=== PATIENT | female | born 1960 | race Caucasian/White ===

== ENCOUNTER 2021-12-24 10:18 | Observation (INO) ==
--- NOTE | 2021-12-24 10:27 | Emergency Department Note ---
HPI General Chief complaint: Weakness Stated complaint: weakness/fall Time Seen by Provider: 12/24/21 10:23 Source: patient and EMS Mode of arrival: EMS Limitations: no limitations History of Present Illness HPI Narrative: 61-year-old female with past medical history of COPD, gout, hypothyroidism, and hypertension presenting after multiple falls. She was seen in the emergency department yesterday after a fall. She had x-rays and was discharged home. She reportedly had multiple falls at home tonight and cannot take care of herself at home. She lives alone in a small trailer without air conditioning. Unknown how long she was on the ground at home after the falls. Patient reports acute on chronic right knee pain and low back pain. Denies shortness of breath, abdominal pain, or headache. Not on anticoagulation. No recent fever, cough, vomiting, or diarrhea. Related Data Home Medications Medication Instructions Recorded Confirmed aspirin 81 mg tablet,delayed 81 mg PO 08/28/16 12/19/21 release Previous Rx's Medication Instructions Recorded oxybutynin chloride 10 mg See Rx Instructions .Route 08/09/20 tablet,extended release 24 hr .COMPLEX #30 tabs verapamil 180 mg tablet,extended See Rx Instructions .Route 04/25/21 release .COMPLEX #90 tabs albuterol sulfate 90 mcg/actuation 2 puff inhalation Q4-6HP PRN 05/10/21 aerosol inhaler Shortness Of Breath Or Wheezing #18 grams cholecalciferol (vitamin D3) 1,250 1,250 mcg PO QWEEK #8 caps 05/10/21 mcg (50,000 unit) capsule levothyroxine 100 mcg tablet 100 mcg PO QDAY #60 tabs 05/10/21 Depends XL #100 ea 08/08/21 loratadine 10 mg tablet See Rx Instructions .Route 08/26/21 .COMPLEX #30 tabs omeprazole 20 mg capsule,delayed See Rx Instructions .Route 08/26/21 release .COMPLEX #60 caps methotrexate sodium 2.5 mg tablet 22.5 mg PO WEEKLY #36 tabs 09/01/21 cyclobenzaprine 10 mg tablet See Rx Instructions .Route 09/07/21 .COMPLEX #60 tabs folic acid 1 mg tablet 1 mg PO QDAY #90 tabs 09/07/21 allopurinol 100 mg tablet See Rx Instructions .Route 10/13/21 .COMPLEX #30 tabs fluoxetine 40 mg capsule See Rx Instructions .Route 10/13/21 .COMPLEX #90 caps ergocalciferol (vitamin D2) 1,250 1,250 mcg PO QWEEK #8 caps 10/28/21 mcg (50,000 unit) capsule Allergies Allergy/AdvReac Type Severity Reaction Status Date / Time Sulfa (Sulfonamide Allergy Severe Hives Verified 12/24/21 10:23 Antibiotics) milk Allergy Unknown Unknown Verified 12/24/21 10:23 Review of Systems ROS ROS Narrative: Narrative: Constitutional: Denies fever Eyes: Denies vision change ENT ED: Denies throat pain Cardiovascular: Denies chest pain or palpitations Respiratory: Denies shortness of breath or cough Gastrointestinal: Denies abdominal pain, nausea, vomiting, diarrhea or melena Genitourinary: Denies dysuria or hematuria Musculoskeletal: Reports back pain Integumentary: Denies rash Neurological: Reports weakness; Denies headache, numbness or dizziness Psychiatric: Denies anxiety Endocrine: Reports fatigue PFSH Narrative Patient History Narrative: Narrative: Medical/Surgical/Family History All Active Problems (Updated 12/24/21 @ 17:01 by Lino Kang MD) Hyponatremia (Acute) Fall (Acute) Falls (Acute) Impaired mobility and ADLs (Acute) Encounter for wound care (Acute) Tegan infection of flexural skin (Acute) Acute ulcer of skin (Acute) Breast lump on left side at 12 o'clock position (Acute) Breast pain, left (Acute) Weakness of left leg (Acute) Macrocytosis without anemia (Acute) Other low back pain (Acute) Lumbosacral disc disease (Chronic) Shoulder impingement syndrome (Chronic) History of fall (Chronic) Right hip pain (Chronic) Right ankle pain (Chronic) Asthma (Chronic) Rheumatoid arthritis (Acute) 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) COPD (chronic obstructive pulmonary disease) (Chronic) Mild mental handicap (Chronic) Lumbosacral disc disease (Chronic) Encounter for long-term (current) use of high-risk medication (Acute) Encounter for long-term use of opiate analgesic (Chronic) Joint pain (Chronic) Encounter for therapeutic drug level monitoring (Chronic) Seasonal allergies (Chronic) Depression, major, recurrent (Chronic) 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) Anxiety disorder (Chronic) Depression with anxiety (Chronic) GERD (gastroesophageal reflux disease) (Chronic) Hypothyroidism (Chronic) Vitamin D deficiency (Chronic) Fibromyalgia (Chronic) Stress incontinence (Chronic) Esophagitis (Chronic) Hypertension (Chronic) Smoker (Chronic) History of cholecystectomy (Chronic ~03/2008) History of hysterectomy (Chronic ~1987) History of surgery on wrist (Chronic) Arthritis (Chronic) Mild mental handicap (Chronic) Osteoarthritis (arthritis due to wear and tear of joints) (Chronic) Obesity (BMI 30-39.9) (Chronic) Decreased GFR (Chronic) Low back pain (Chronic) Glaucoma (Chronic) Gout (Chronic) Chronic pain (Chronic) Lumbar radiculopathy (Chronic) Lumbar stenosis with neurogenic claudication (Chronic) SILAS (obstructive sleep apnea) (Acute) Medical History Abscess Anxiety disorder Arthritis Asthma Bronchitis Chronic pain Costochondral pain Cyclic citrullinated peptide (CCP) antibody positive Depression Depression with anxiety Depression, major, recurrent Edema Encounter for long-term (current) use of high-risk medication Encounter for long-term use of opiate analgesic Encounter for therapeutic drug level monitoring Esophagitis Fibromyalgia Foreign body of left hand GERD (gastroesophageal reflux disease) Glaucoma Gout Hematuria History of fall Hormone replacement therapy Hypertension Medication reviewed Avoid class 1 antihistamine, cold medicines Increase water, reduce salt/processed foods ,,22 Smoking cessation encouraged Hypothyroidism 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 Joint pain Low back pain Lumbar paraspinal muscle spasm Lumbar radiculopathy Lumbar stenosis with neurogenic claudication Lumbosacral disc disease Mild mental handicap MRSA (methicillin resistant staph aureus) culture positive left 4th toe Obesity SILAS (obstructive sleep apnea) Osteoarthritis (arthritis due to wear and tear of joints) Overdose Rheumatoid arthritis Right ankle pain Right hip pain Seasonal allergies Refill of loratidine, avoid cold medicines for blood pressure control Smoker Declines NRT 05/10/21, 09/07/21 Stress incontinence Tachycardia Vitamin D deficiency Wound check, abscess Surgical History Amputation of little toe (11/02/18) History of cholecystectomy (~03/2008) History of hysterectomy (~1987) History of surgery on wrist Hx of inguinal hernia surgery Family History Mother Cancer Heart disease Diabetes Lung disease Alcohol abuse Sister Hypertension Brother Drug abuse Social History Smoking Status: Current every day smoker Alcohol Intake Frequency: does not drink Substance Use: does not use Exam Narrative Narrative: Narrative: General Limitations: no limitations General appearance: Present alert and in no apparent distress Head Head: Present normocephalic and other (Old bruising noted on face) Eye Eye: Present normal appearance, PERRL and EOMI; Absent scleral icterus, conjunctival injection or nystagmus ENT ENT: Present mucous membranes moist Neck Neck: Present normal inspection, full ROM and trachea midline; Absent tenderness, meningismus or lymphadenopathy Chest Chest: Present symmetric chest wall rise Respiratory Respiratory: Present normal lung sounds bilaterally; Absent respiratory distress, rales/crackles, wheezes, stridor or accessory muscle use Cardiovascular Cardiovascular: Present regular rate and normal rhythm; Absent systolic murmur or diastolic murmur Adbominal Abdominal: Present soft; Absent distention, tenderness, guarding, rebound or rigidity Expanded Lower Extremity Knee: Present normal inspection, tenderness, abrasion and other (Range of motion limited secondary to pain) Neurovascular/Tendon: Present normal capillary refill; Absent pulse deficit or sensory deficit Back Back: Present L-S tenderness; Absent CVA tenderness (R) or CVA tenderness (L) Neurological Neurological: Present alert, oriented X3 and CN II-XII intact; Absent motor sensory deficit Psychiatric Psychiatric: Present normal affect and normal mood Skin Skin: Present warm (WNL) and dry Course Consultations Consultation #1: Dr. Kang, hospitalist Time: 16:40 Vital Signs Vital signs: Vital Signs Temperature 98.0 F 12/24/21 10:19 Pulse Rate 81 12/24/21 10:19 Respiratory Rate 16 12/24/21 10:19 Blood Pressure 131/69 12/24/21 10:19 Pulse Oximetry (%) 96 12/24/21 10:19 Oxygen Delivery Method 12/24/21 10:19 Temperature 98.0 F 12/24/21 15:40 Pulse Rate 90 12/24/21 17:29 Respiratory Rate 16 12/24/21 15:40 Blood Pressure 145/76 12/24/21 17:29 Pulse Oximetry (%) 100 12/24/21 17:29 Oxygen Delivery Method 12/24/21 10:19 [facility] MDM Narrative Medical decision making narrative: 61-year-old female presenting from home after multiple falls. Vital signs are stable. There is concern that she is not able to take care of herself at home. Labs are notable for mild hyponatremia to 131. UA and chest x-ray with no evidence of infection. CT head with no acute abnormality. X-ray of the right knee shows no fracture. CK and lumbar x-ray are pending. Patient is not able to take care of herself at home and I spoke with family who is refusing to take her home because she cannot take care of herself. I spoke with Dr. Kang, hospitalist, who accepts the patient for observation admission. Lab Data Lab results reviewed: Yes I reviewed the patient's lab results. Result diagrams: 12/24/21 11:23 12/24/21 11:23 Labs: Lab Results 12/24/21 12/24/21 12/24/21 Range/Units 11:23 11:23 11:23 WBC 8.3 (4.5-11.0) K/mcL RBC 3.76 (3.59-5.38) M/mcL Hgb 11.7 (11.2-15.7) g/dL Hct 36.4 (34.1-44.9) % MCV 96.8 (80.0-100.0) fL MCH 31.1 (26.0-34.0) pg MCHC 32.1 (31.0-36.0) g/dL RDW 14.4 (11.5-14.5) % Plt Count 236 (140-440) K/mcL MPV 9.7 (7.4-10.4) fL Immature Gran % (Auto) 0.8 H (0.0-0.5) % Neut % (Auto) 78.2 H (38.0-78.0) % Lymph % (Auto) 13.3 L (15.5-49.0) % Banks % (Auto) 7.1 (1.0-12.0) % Eos % (Auto) 0.2 (0.0-7.0) % Baso % (Auto) 0.4 (0.0-2.0) % Lymph # (Auto) 1.10 L (1.50-4.80) K/mcL Banks # (Auto) 0.59 (0.10-0.90) K/mcL Eos # (Auto) 0.02 (0.00-0.70) K/mcL Baso # (Auto) 0.03 (0.00-0.30) K/mcL Immature Gran # 0.07 H (0.00-0.05) K/mcl Absolute Neutrophils 6.52 (1.80-8.00) K/mcL Sodium 131 L (133-145) mmol/L Potassium 4.3 (3.3-5.1) mmol/L Chloride 98 (96-108) mmol/L Carbon Dioxide 22 (22-30) mmol/L Anion Gap 11.0 (8.0-16.0) BUN 13 (8-23) mg/dL Creatinine 0.7 (0.6-1.1) mg/dL GFR Calculation 93 Glucose 118 H (70-105) mg/dL Calcium 9.1 (8.6-10.4) mg/dL Total Bilirubin 0.6 (0.1-1.0) mg/dL AST 25 (<32) U/L ALT 30 (<40) U/L Alkaline Phosphatase 131 H (39-117) U/L Total Creatine Kinase 129 (24-170) U/L Total Protein 7.3 (5.9-8.4) gm/dL Albumin 4.1 (3.2-5.2) gm/dL Globulin 3.2 (2.2-3.7) gm/dL Albumin/Globulin Ratio 1.3 (1.0-2.3) Urine Color Urine Appearance (Clear) Urine pH (5.0-9.0) Ur Specific Naoma (1.000-1.035) Urine Protein (Negative) mg/dL Urine Glucose (UA) (Negative) mg/dL Urine Ketones (Negative) mg/dL Urine Occult Blood (Negative) leo/mcL Urine Nitrate (Negative) Urine Bilirubin (Negative) mg/dL Urine Urobilinogen mg/dL Ur Leukocyte Esterase (Negative) /uL Urine RBC (0-3) /hpf Urine WBC (0-4) /hpf Ur Squamous Epith Cells (0-4) /hpf Urine Bacteria (0) /hpf Hyaline Casts (0-2) /lph Urine Mucus (None) /hpf Ur Culture Indicated? 12/24/21 Range/Units 12:39 WBC (4.5-11.0) K/mcL RBC (3.59-5.38) M/mcL Hgb (11.2-15.7) g/dL Hct (34.1-44.9) % MCV (80.0-100.0) fL MCH (26.0-34.0) pg MCHC (31.0-36.0) g/dL RDW (11.5-14.5) % Plt Count (140-440) K/mcL MPV (7.4-10.4) fL Immature Gran % (Auto) (0.0-0.5) % Neut % (Auto) (38.0-78.0) % Lymph % (Auto) (15.5-49.0) % Banks % (Auto) (1.0-12.0) % Eos % (Auto) (0.0-7.0) % Baso % (Auto) (0.0-2.0) % Lymph # (Auto) (1.50-4.80) K/mcL Banks # (Auto) (0.10-0.90) K/mcL Eos # (Auto) (0.00-0.70) K/mcL Baso # (Auto) (0.00-0.30) K/mcL Immature Gran # (0.00-0.05) K/mcl Absolute Neutrophils (1.80-8.00) K/mcL Sodium (133-145) mmol/L Potassium (3.3-5.1) mmol/L Chloride (96-108) mmol/L Carbon Dioxide (22-30) mmol/L Anion Gap (8.0-16.0) BUN (8-23) mg/dL Creatinine (0.6-1.1) mg/dL GFR Calculation Glucose (70-105) mg/dL Calcium (8.6-10.4) mg/dL Total Bilirubin (0.1-1.0) mg/dL AST (<32) U/L ALT (<40) U/L Alkaline Phosphatase (39-117) U/L Total Creatine Kinase (24-170) U/L Total Protein (5.9-8.4) gm/dL Albumin (3.2-5.2) gm/dL Globulin (2.2-3.7) gm/dL Albumin/Globulin Ratio (1.0-2.3) Urine Color Yellow Urine Appearance Clear (Clear) Urine pH 5.5 (5.0-9.0) Ur Specific Naoma >= 1.030 (1.000-1.035) Urine Protein 30 mg/dl A (Negative) mg/dL Urine Glucose (UA) Negative (Negative) mg/dL Urine Ketones 15 mg/dl A (Negative) mg/dL Urine Occult Blood Trace-lysed A (Negative) leo/mcL Urine Nitrate Negative (Negative) Urine Bilirubin Small A (Negative) mg/dL Urine Urobilinogen Normal mg/dL Ur Leukocyte Esterase Negative (Negative) /uL Urine RBC 3 (0-3) /hpf Urine WBC 1 (0-4) /hpf Ur Squamous Epith Cells 2 (0-4) /hpf Urine Bacteria None (0) /hpf Hyaline Casts 1 (0-2) /lph Urine Mucus Mod A (None) /hpf Ur Culture Indicated? No Radiology Data Radiology results reviewed: Yes I reviewed the patient's radiology results. Radiology results narrative: Ordering Physician:Hugh Pearl M.D. Date of Service:12/24/21 Procedure(s):CT head/brain wo con History: Multiple falls, head injury, increased weakness TECHNIQUE: The brain was imaged without contrast in axial plane at 2.5 mm intervals. Sagittal and coronal reformats were created. The radiation exposure was limited using dose reduction technology. FINDINGS: There is no intracranial hemorrhage, edema or infarct. There are large confluent areas of abnormal decreased attenuation in the centrum semiovale throughout the frontal and parietal lobes. There is no significant atrophy. No abnormal extra-axial fluid collection is present. The bone windows show no skull fracture. Visualized portions of the orbits and sinuses are normal. No prior study is available for comparison. IMPRESSION: No evidence of acute head injury Nonspecific diffuse white matter disease in the frontal and parietal lobes. This may be due to early onset white matter ischemia or degeneration. An inflammatory process is less likely. Dr. Pearl was called with the report Interpreted and Authenticated by: Hadley Dumont 12/24/21 1154 [id number] Production Specialist: <Electronically signed by Hadley Dumont M.D. in OV> 12/24/21 1158 Ordering Physician:Hugh Pearl M.D. Date of Service:12/24/21 Procedure(s):XR chest 1V portable HISTORY: Weakness, fell FINDINGS: There is a large epicardial fat pad along the right heart border. The lungs are clear. The heart size and pulmonary vasculature are normal. Patient is tilted to the right. Aorta is mildly tortuous. No fracture is detected. Comparison with the prior exam from 05/04/21 shows the linear scar in the left lower lobe is less apparent today. IMPRESSION: No acute abnormality Interpreted and Authenticated by: Hadley Dumont 12/24/21 Ordering Physician:Hugh Pearl M.D. Date of Service:12/24/21 Procedure(s):XR knee RT 3V HISTORY: Fell, right knee pain FINDINGS: No fracture or dislocation are present. There is a small spur along the superior articular margin of the patella. Joint spaces are normal in width. There has been no change since 12/22/21. IMPRESSION: No fracture Interpreted and Authenticated by: Hadley Dumont 12/24/21 EKG Data EKG #1: EKG attestation: Yes I reviewed and interpreted this EKG. and Yes There are no EKG findings of acute coronary syndrome EKG results narrative: Sinus rhythm at [address] elevation or depression. Interpretation: no acute changes Discharge Plan Patient/Caregiver Discharge Instructions Pt seen by DRESS CUTTER/PA only: No Clinical Impression: Falls, Impaired mobility and ADLs Patient Disposition: Xfer As Outpt/Obs ([facility]) Condition: Fair Follow up with: Kaykay Leigh ARNP [Primary Care Provider] - Prescriptions: No Action oxybutynin chloride 10 mg tablet extended release 24hr See Rx Instructions .ROUTE .COMPLEX Qty: 30 6RF Dose Instruction: TAKE ONE TABLET BY MOUTH ONCE DAILY IN THE MORNING Rx Instructions: TAKE ONE TABLET BY MOUTH ONCE DAILY IN THE MORNING verapamil 180 mg tablet extended release See Rx Instructions .ROUTE .COMPLEX Qty: 90 1RF Dose Instruction: TAKE ONE TABLET BY MOUTH ONCE DAILY AT BEDTIME Rx Instructions: TAKE ONE TABLET BY MOUTH ONCE DAILY AT BEDTIME (DME) Depends XL See Rx Instructions .Route .MEDSUPPLY Qty: 100 3RF Rx Instructions: change when soiled omeprazole 20 mg capsule,delayed release(DR/EC) See Rx Instructions .ROUTE .COMPLEX Qty: 60 11RF Dose Instruction: TAKE ONE CAPSULE BY MOUTH TWICE DAILY FOR STOMACH Rx Instructions: TAKE ONE CAPSULE BY MOUTH TWICE DAILY FOR STOMACH loratadine 10 mg tablet See Rx Instructions .ROUTE .COMPLEX Qty: 30 2RF Dose Instruction: TAKE ONE TABLET BY MOUTH ONCE DAILY Rx Instructions: TAKE ONE TABLET BY MOUTH ONCE DAILY methotrexate sodium 2.5 mg tablet 22.5 mg PO WEEKLY Qty: 36 5RF folic acid 1 mg tablet 1 mg PO QDAY Qty: 90 0RF cyclobenzaprine 10 mg tablet See Rx Instructions .ROUTE .COMPLEX Qty: 60 1RF Dose Instruction: TAKE ONE TABLET BY MOUTH THREE TIMES DAILY NEEDED FOR ANALGESIA Rx Instructions: TAKE ONE TABLET BY MOUTH THREE TIMES DAILY NEEDED FOR ANALGESIA allopurinol 100 mg tablet See Rx Instructions .ROUTE .COMPLEX Qty: 30 3RF Dose Instruction: TAKE ONE TABLET BY MOUTH ONCE DAILY Rx Instructions: TAKE ONE TABLET BY MOUTH ONCE DAILY fluoxetine 40 mg capsule See Rx Instructions .ROUTE .COMPLEX Qty: 90 1RF Dose Instruction: TAKE ONE CAPSULE BY MOUTH ONCE DAILY Rx Instructions: TAKE ONE CAPSULE BY MOUTH ONCE DAILY ergocalciferol (vitamin D2) 1,250 mcg (50,000 unit) capsule 1,250 mcg PO QWEEK Qty: 8 0RF levothyroxine 100 mcg tablet 100 mcg PO QDAY Qty: 60 1RF Rx Instructions: Take on empty stomach with water, wait 40 minutes to eat/drink. cholecalciferol (vitamin D3) 1,250 mcg (50,000 unit) capsule 1,250 mcg PO QWEEK Qty: 8 0RF albuterol sulfate 90 mcg/actuation HFA aerosol inhaler 2 puff INHALATION Q4-6HP PRN (Reason: Shortness Of Breath Or Wheezing) Qty: 18 1RF aspirin 81 MG tablet,delayed release (DR/EC) 81 mg PO
--- NOTE | 2021-12-24 12:02 | Cat Scan Report ---
History: Multiple falls, head injury, increased weakness TECHNIQUE: The brain was imaged without contrast in axial plane at 2.5 mm intervals. Sagittal and coronal reformats were created. The radiation exposure was limited using dose reduction technology. FINDINGS: There is no intracranial hemorrhage, edema or infarct. There are large confluent areas of abnormal decreased attenuation in the centrum semiovale throughout the frontal and parietal lobes. There is no significant atrophy. No abnormal extra-axial fluid collection is present. The bone windows show no skull fracture. Visualized portions of the orbits and sinuses are normal. No prior study is available for comparison. IMPRESSION: No evidence of acute head injury Nonspecific diffuse white matter disease in the frontal and parietal lobes. This may be due to early onset white matter ischemia or degeneration. An inflammatory process is less likely. Dr. Pearl was called with the report Interpreted and Authenticated by: Hadley Dumont 12/24/21
[2021-12-24 12:08] LABS: Basophils # (Auto) 0.03 K/mcL (0.00-0.30); Basophils % (Auto) 0.4 % (0.0-2.0); Eosinophils # (Auto) 0.02 K/mcL (0.00-0.70); Eosinophils % (Auto) 0.2 % (0.0-7.0); Hematocrit 36.4 % (34.1-44.9); Hemoglobin 11.7 g/dL (11.2-15.7); Lymphocytes % (Auto) 13.3 % (15.5-49.0); Mean Cell Volume 96.8 fL (80.0-100.0); Mean Corpuscular HGB Conc 32.1 g/dL (31.0-36.0); Mean Platelet Volume 9.7 fL (7.4-10.4); Monocytes # (Auto) 0.59 K/mcL (0.10-0.90); Monocytes % (Auto) 7.1 % (1.0-12.0); Neutrophils % (Auto) 78.2 % (38.0-78.0); Platelet Count 236 K/mcL (140-440); RBC 3.76 M/mcL (3.59-5.38); Red Cell Distribution Width 14.4 % (11.5-14.5); WBC 8.3 K/mcL (4.5-11.0)
[2021-12-24 12:28] LABS: ALT/SGPT 30 U/L (<40); AST/SGOT 25 U/L (<32); Albumin 4.1 gm/dL (3.2-5.2); Albumin/Globulin Ratio 1.3 (1.0-2.3); Alkaline Phosphatase 131 U/L (39-117); Bilirubin,Total 0.6 mg/dL (0.1-1.0); Blood Urea Nitrogen 13 mg/dL (8-23); Calcium 9.1 mg/dL (8.6-10.4); Carbon Dioxide 22 mmol/L (22-30); Chloride 98 mmol/L (96-108); Globulin 3.2 gm/dL (2.2-3.7); Glomerular Filtration Rate 93; Glucose 118 mg/dL (70-105)
[2021-12-24 14:13] LABS: Appearance,Urine Clear (Clear); Bilirubin,Urine Small mg/dL (Negative); Color,Urine Yellow; Culture Indicated,Urine No; Glucose,Urine (UA) Negative (Negative); Ketones,Urine 15 mg/dL mg/dL (Negative); Leukocyte Esterase,Urine Negative /uL (Negative); Mucus,Urine MOD /hpf; Nitrate,Urine Negative (Negative); PH,Urine 5.5 (5.0-9.0); Specific Gravity,Urine >= 1.030 (1.000-1.035); Urine Blood Trace-lysed ery/mcL (Negative); Urine Hyaline Cast 1 /lph (0-2); Urine RBC 3 /hpf (0-3); Urine Squamous Epithelial Cell 2 /hpf (0-4); Urine WBC 1 /hpf (0-4); Urobilinogen,Urine Normal
--- NOTE | 2021-12-24 14:51 | XRay Report ---
HISTORY: Weakness, fell FINDINGS: There is a large epicardial fat pad along the right heart border. The lungs are clear. The heart size and pulmonary vasculature are normal. Patient is tilted to the right. Aorta is mildly tortuous. No fracture is detected. Comparison with the prior exam from 05/04/21 shows the linear scar in the left lower lobe is less apparent today. IMPRESSION: No acute abnormality Interpreted and Authenticated by: Hadley Dumont 12/24/21
--- NOTE | 2021-12-24 14:52 | XRay Report ---
HISTORY: Fell, right knee pain FINDINGS: No fracture or dislocation are present. There is a small spur along the superior articular margin of the patella. Joint spaces are normal in width. There has been no change since 12/22/21. IMPRESSION: No fracture Interpreted and Authenticated by: Hadley Dumont 12/24/21
--- NOTE | 2021-12-24 16:57 | Internal Med History&Physical ---
HPI History of Present Illness Patient information: Note initiated : 12/24/21 at 4:53 pm Service Date, if different from initiated Date: [] Patient: Whit Anand a 61 y/o F admitted on for weakness/fall. Chief Complaint: [general weakness and frequent falls] Chief complaint: general weakness and frequent falls History of present illness: Ms. Anand is a 61 year old F history of gout, asthma/COPD, depression/anxiety, hypothyroidism, GERD, overactive bladder, essential hypertensions, presenting with general body weakness with frequent falls. She was in our ED yesterday with the same chief complaint and she was being discharged home. Today she returned to our ER for the same complaints. Now the family stated that they are not comfortable of taking the patient's back home. Patient lives by herself. Patient have another episode of falls right in the ER. CT of the head did not reveal any acute intra cranial pathologies. Chest x-ray knee x-ray also have no acute changes. Lumbar x-ray pending. Labs only significant see is mild hyponatremia with serum sodium level 132. UA does not suggest the presence of urinary tract infections. Admission request was called for physical therapy and Occupational Therapy evaluation and treatment and for placement pending. Constitutional Constitutional: Present frequent falls and weakness; Absent chills, excessive sweating, fatigue or fever(s) EENT Eyes: Absent blurry vision, change in vision, loss of vision or other visual disturbances Ears: Absent decreased hearing or tinnitus Nose, mouth and throat: Absent abnormal hearing, dry mouth, headache(s), nasal congestion or sore throat Cardiovascular Cardiovascular: Absent chest pain, chest pain at rest, edema, irregular heart rhythm or palpatations Respiratory Respiratory: Absent cough, dyspnea or wheezing Gastrointestinal Gastrointestinal: Absent abdominal pain, constipation, diarrhea, nausea or vomi ting Musculoskeletal Musculoskeletal: Absent back pain, deformity, limited range of motion, muscle cramps, muscle weakness or numbness Integumentary Integumentary: Absent lesions, rash or wounds Neurological Neurological: Absent focal weakness, headache(s) or numbness Psychiatric Psychiatric: Absent anxiety, depression or hallucinations PFSH PFSH All Active Problems (Updated 12/24/21 @ 17:01 by Lino Kang MD) Hyponatremia (Acute) Fall (Acute) Falls (Acute) Impaired mobility and ADLs (Acute) Encounter for wound care (Acute) Tegan infection of flexural skin (Acute) Acute ulcer of skin (Acute) Breast lump on left side at 12 o'clock position (Acute) Breast pain, left (Acute) Weakness of left leg (Acute) Macrocytosis without anemia (Acute) Other low back pain (Acute) Lumbosacral disc disease (Chronic) Shoulder impingement syndrome (Chronic) History of fall (Chronic) Right hip pain (Chronic) Right ankle pain (Chronic) Asthma (Chronic) Rheumatoid arthritis (Acute) 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) COPD (chronic obstructive pulmonary disease) (Chronic) Mild mental handicap (Chronic) Lumbosacral disc disease (Chronic) Encounter for long-term (current) use of high-risk medication (Acute) Encounter for long-term use of opiate analgesic (Chronic) Joint pain (Chronic) Encounter for therapeutic drug level monitoring (Chronic) Seasonal allergies (Chronic) Depression, major, recurrent (Chronic) 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) Anxiety disorder (Chronic) Depression with anxiety (Chronic) GERD (gastroesophageal reflux disease) (Chronic) Hypothyroidism (Chronic) Vitamin D deficiency (Chronic) Fibromyalgia (Chronic) Stress incontinence (Chronic) Esophagitis (Chronic) Hypertension (Chronic) Smoker (Chronic) History of cholecystectomy (Chronic ~03/2008) History of hysterectomy (Chronic ~1987) History of surgery on wrist (Chronic) Arthritis (Chronic) Mild mental handicap (Chronic) Osteoarthritis (arthritis due to wear and tear of joints) (Chronic) Obesity (BMI 30-39.9) (Chronic) Decreased GFR (Chronic) Low back pain (Chronic) Glaucoma (Chronic) Gout (Chronic) Chronic pain (Chronic) Lumbar radiculopathy (Chronic) Lumbar stenosis with neurogenic claudication (Chronic) SILAS (obstructive sleep apnea) (Acute) Medical History Abscess Anxiety disorder Arthritis Asthma Bronchitis Chronic pain Costochondral pain Cyclic citrullinated peptide (CCP) antibody positive Depression Depression with anxiety Depression, major, recurrent Edema Encounter for long-term (current) use of high-risk medication Encounter for long-term use of opiate analgesic Encounter for therapeutic drug level monitoring Esophagitis Fibromyalgia Foreign body of left hand GERD (gastroesophageal reflux disease) Glaucoma Gout Hematuria History of fall Hormone replacement therapy Hypertension Medication reviewed Avoid class 1 antihistamine, cold medicines Increase water, reduce salt/processed foods 4,13,22 Smoking cessation encouraged Hypothyroidism Immunodeficiency due to assisted drug therapy Joint pain Low back pain Lumbar paraspinal muscle spasm Lumbar radiculopathy Lumbar stenosis with neurogenic claudication Lumbosacral disc disease Mild mental handicap MRSA (methicillin resistant staph aureus) culture positive left 4th toe Obesity SILAS (obstructive sleep apnea) Osteoarthritis (arthritis due to wear and tear of joints) Overdose Rheumatoid arthritis Right ankle pain Right hip pain Seasonal allergies Refill of loratidine, avoid cold medicines for blood pressure control Smoker Declines NRT 05/10/21, 09/07/21 Stress incontinence Tachycardia Vitamin D deficiency Wound check, abscess Surgical History Amputation of little toe (11/02/18) History of cholecystectomy (~03/2008) History of hysterectomy (~1987) History of surgery on wrist Hx of inguinal hernia surgery Family History Mother Cancer Heart disease Diabetes Lung disease Alcohol abuse Sister Hypertension Brother Drug abuse Social History caregiver/support person: Yes marital status: education level: elementary school occupational status: unemployed and disabled occupation: Caregiver physical activity: none smoking status start date: 05/28/84 quit status: not considering quitting counseling given: patient declined (medications) and provider counseling alcohol intake frequency: does not drink substance use type: does not use MEDS/ALLERGIES Home Medications and Allergies Home Medications Medication Instructions Recorded Confirmed Type aspirin 81 mg tablet,delayed 81 mg PO 08/28/16 12/19/21 History release oxybutynin chloride 10 mg See Rx Instructions .Route 08/09/20 12/19/21 Rx tablet,extended release 24 hr .COMPLEX #30 tabs verapamil 180 mg tablet,extended See Rx Instructions .Route 04/25/21 12/19/21 Rx release .COMPLEX #90 tabs albuterol sulfate 90 mcg/actuation 2 puff inhalation Q4-6HP PRN 05/10/21 12/19/21 Rx aerosol inhaler Shortness Of Breath Or Wheezing #18 grams cholecalciferol (vitamin D3) 1,250 1,250 mcg PO QWEEK #8 caps 05/10/21 12/19/21 Rx mcg (50,000 unit) capsule levothyroxine 100 mcg tablet 100 mcg PO QDAY #60 tabs 05/10/21 12/19/21 Rx Depends XL #100 ea 08/08/21 12/19/21 Rx loratadine 10 mg tablet See Rx Instructions .Route 08/26/21 12/19/21 Rx .COMPLEX #30 tabs omeprazole 20 mg capsule,delayed See Rx Instructions .Route 08/26/21 12/19/21 Rx release .COMPLEX #60 caps methotrexate sodium 2.5 mg tablet 22.5 mg PO WEEKLY #36 tabs 09/01/21 12/19/21 Rx cyclobenzaprine 10 mg tablet See Rx Instructions .Route 09/07/21 12/19/21 Rx .COMPLEX #60 tabs folic acid 1 mg tablet 1 mg PO QDAY #90 tabs 09/07/21 12/19/21 Rx allopurinol 100 mg tablet See Rx Instructions .Route 10/13/21 12/19/21 Rx .COMPLEX #30 tabs fluoxetine 40 mg capsule See Rx Instructions .Route 10/13/21 12/19/21 Rx .COMPLEX #90 caps ergocalciferol (vitamin D2) 1,250 1,250 mcg PO QWEEK #8 caps 10/28/21 12/19/21 Rx mcg (50,000 unit) capsule Allergies Allergy/AdvReac Type Severity Reaction Status Date / Time Sulfa (Sulfonamide Allergy Severe Hives Verified 12/24/21 10:23 Antibiotics) milk Allergy Unknown Unknown Verified 12/24/21 10:23 EXAM Constitutional Vitals: Temp Pulse Resp BP Pulse Ox O2 Del Method 36.7 C 113 H 16 124/72 96 12/24/21 15:40 12/24/21 15:54 12/24/21 15:40 12/24/21 15:40 12/24/21 15:54 12/24/21 10:19 General appearance: cooperative and no acute distress Head Head exam: Present atraumatic and normocephalic Eye Eye exam: Present EOMI and PERRL ENT ENT exam: Present mucous membranes moist, normal exam and normal external ear exam Neck Neck exam: Present normal inspection; Absent lymphadenopathy, tenderness or thyromegaly Respiratory Respiratory exam: Absent accessory muscle use, respiratory distress or wheezes Cardiovascular Cardiovascular exam: Present normal rate and rhythm; Absent JVD GI/Abdominal GI/Abdominal exam: Present normal bowel sounds and soft; Absent organomegaly or tenderness Extremities Exam Extremities exam: Present full ROM, normal capillary refill and normal inspection; Absent tenderness Neurological Exam Neurological exam: Present alert, CN II-XII intact and oriented X3; Absent motor sensory deficit Psychiatric Psychiatric exam: Present normal affect and normal mood; Absent anxious or depressed Skin Skin exam: Present dry and intact DATA Data Completed and Pending Labs: Labs from last 24 hours 12/24/21 12/24/21 12/24/21 12:39 11:23 11:23 WBC RBC Hgb Hct MCV MCH MCHC RDW Plt Count MPV Immature Gran % (Auto) Neut % (Auto) Lymph % (Auto) [place] % (Auto) Eos % (Auto) Baso % (Auto) Lymph # (Auto) [place] # (Auto) Eos # (Auto) Baso # (Auto) Immature Gran # Absolute Neutrophils Sodium 131 L Potassium 4.3 Chloride 98 Carbon Dioxide 22 Anion Gap 11.0 BUN 13 Creatinine 0.7 GFR Calculation 93 Glucose 118 H Calcium 9.1 Total Bilirubin 0.6 AST 25 ALT 30 Alkaline Phosphatase 131 H Total Creatine Kinase Pending Total Protein 7.3 Albumin 4.1 Globulin 3.2 Albumin/Globulin Ratio 1.3 Urine Color Yellow Urine Appearance Clear Urine pH 5.5 Ur Specific [place] >= 1.030 Urine Protein 30 mg/dl A Urine Glucose (UA) Negative Urine Ketones 15 mg/dl A Urine Occult Blood Trace-lysed A Urine Nitrate Negative Urine Bilirubin Small A Urine Urobilinogen Normal Ur Leukocyte Esterase Negative Urine RBC 3 Urine WBC 1 Ur Squamous Epith Cells 2 Urine Bacteria None Hyaline Casts 1 Urine Mucus Mod A Ur Culture Indicated? No 12/24/21 11:23 WBC 8.3 RBC 3.76 Hgb 11.7 Hct 36.4 MCV 96.8 MCH 31.1 MCHC 32.1 RDW 14.4 Plt Count 236 MPV 9.7 Immature Gran % (Auto) 0.8 H Neut % (Auto) 78.2 H Lymph % (Auto) 13.3 L [place] % (Auto) 7.1 Eos % (Auto) 0.2 Baso % (Auto) 0.4 Lymph # (Auto) 1.10 L [place] # (Auto) 0.59 Eos # (Auto) 0.02 Baso # (Auto) 0.03 Immature Gran # 0.07 H Absolute Neutrophils 6.52 Sodium Potassium Chloride Carbon Dioxide Anion Gap BUN Creatinine GFR Calculation Glucose Calcium Total Bilirubin AST ALT Alkaline Phosphatase Total Creatine Kinase Total Protein Albumin Globulin Albumin/Globulin Ratio Urine Color Urine Appearance Urine pH Ur Specific [place] Urine Protein Urine Glucose (UA) Urine Ketones Urine Occult Blood Urine Nitrate Urine Bilirubin Urine Urobilinogen Ur Leukocyte Esterase Urine RBC Urine WBC Ur Squamous Epith Cells Urine Bacteria Hyaline Casts Urine Mucus Ur Culture Indicated? A/P Assessment and plan (1) Falls: Status: Acute (2) COPD (chronic obstructive pulmonary disease): Status: Chronic Comment: Smoking cessation reviewed 05/10/21 Qualifiers: COPD type: unspecified COPD Qualified Code(s): J44.9 - Chronic obstructive pulmonary disease, unspecified (3) Asthma: Status: Chronic (4) GERD (gastroesophageal reflux disease): Status: Chronic Qualifiers: Esophagitis presence: esophagitis presence not specified Qualified Code(s): K21.9 - Gastro-esophageal reflux disease without esophagitis (5) Depression with anxiety: Status: Chronic (6) Hypothyroidism: Status: Chronic Qualifiers: Hypothyroidism type: acquired Qualified Code(s): E03.9 - Hypothyroidism, unspecified (7) Stress incontinence: Status: Chronic (8) Hypertension: Status: Chronic Comment: Medication reviewed Avoid class 1 antihistamine, cold medicines Increase water, reduce salt/processed foods 4,13,22 Smoking cessation encouraged Qualifiers: Hypertension type: essential hypertension Qualified Code(s): I10 - Essential (primary) hypertension (9) Gout: Status: Chronic (10) Hyponatremia: Status: Acute Narrative A/P Narrative: Assessment and Plans: 1. 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 Mild hyponatremia: Saline lock Repeat BMP in the morning to trend serum sodium level 3. h/o Gout: Continue allopurinol 4. Asthma/COPD: Continue bronchodilators PRN wheezing, currently no evidence of exacerbation 5. Depression with anxiety: Continue Fluoxetine 6. Hypothyroidism: Continue oral thyroid replacement therapy 7. h/o GERD: Continue oral PPI 8. Overactive bladder/stress incontinence: Continue oxybutynin 9. Essential hypertension: Continue Verapamil GI ppx: Continue oral PPI DVT ppx: SCDs Code status: Full Prognosis: stable Disposition: observation med surg; PT OT Time Spent With Patient Time: Total time spent is greater than 50% in coordination of care (as documented) at patient's floor/unit and/or counseling patient: Total time spent with greater than 50% in coordination of care (as documented) at patient's floor/unit and/or counseling patient:: 50 - 70 minutes
[2021-12-24] MEDS ORDERED: ALBUTEROL SULFATE 200 PUFF INHALER INH PRN (19:55)
[2021-12-24] MEDS ORDERED: IPRATROPIUM/ALBUTEROL 3 ML AMPUL.NEB NEB PRN (19:55)
[2021-12-24] MEDS ORDERED: ONDANSETRON 4 MG/2 ML VIAL IV PRN (19:55)
[2021-12-24] MEDS ORDERED: ACETAMINOPHEN 325 MG TABLET PO PRN (19:55)
[2021-12-24] MEDS: SENNOSIDES 1 TABLET PO SCH (21:27)
[2021-12-24] MEDS: 0.9 % SODIUM CHLORIDE 10 ML SYRINGE IV SCH (21:27)
[2021-12-24] MEDS: DOCUSATE SODIUM 100 MG CAPSULE PO SCH (21:27)
[2021-12-24] MEDS: VERAPAMIL 180 MG TAB.XL.24H PO SCH (21:27)
[2021-12-24] MEDS: OMEPRAZOLE 20 MG CAPSULE PO SCH (21:27)
[2021-12-25] MEDS: 0.9 % SODIUM CHLORIDE 10 ML SYRINGE IV SCH ×2 (05:20→16:07)
[2021-12-25 06:46] LABS: Basophils # (Auto) 0.05 K/mcL (0.00-0.30); Basophils % (Auto) 0.8 % (0.0-2.0); Eosinophils # (Auto) 0.09 K/mcL (0.00-0.70); Eosinophils % (Auto) 1.4 % (0.0-7.0); Hematocrit 33.4 % (34.1-44.9); Hemoglobin 10.7 g/dL (11.2-15.7); Lymphocytes # (Auto) 1.55 K/mcL (1.50-4.80); Lymphocytes % (Auto) 24.3 % (15.5-49.0); Mean Cell Volume 97.9 fL (80.0-100.0); Mean Platelet Volume 9.7 fL (7.4-10.4); Monocytes # (Auto) 0.85 K/mcL (0.10-0.90); Monocytes % (Auto) 13.3 % (1.0-12.0); Neutrophils % (Auto) 59.4 % (38.0-78.0); Platelet Count 214 K/mcL (140-440); RBC 3.41 M/mcL (3.59-5.38); Red Cell Distribution Width 14.6 % (11.5-14.5); WBC 6.4 K/mcL (4.5-11.0)
[2021-12-25 07:08] LABS: Blood Urea Nitrogen 18 mg/dL (8-23); Calcium 8.9 mg/dL (8.6-10.4); Carbon Dioxide 22 mmol/L (22-30); Chloride 101 mmol/L (96-108); Glomerular Filtration Rate 93; Glucose 110 mg/dL (70-105)
[2021-12-25] MEDS: FLUoxetine HCL 20 MG CAPSULE PO SCH (08:20)
[2021-12-25] MEDS: DOCUSATE SODIUM 100 MG CAPSULE PO SCH ×2 (08:20→19:50)
[2021-12-25] MEDS: OMEPRAZOLE 20 MG CAPSULE PO SCH ×2 (08:21→19:50)
[2021-12-25] MEDS: OXYBUTYNIN CHLORIDE 5 MG TAB.XL.24H PO SCH (08:21)
[2021-12-25] MEDS: ALLOPURINOL 100 MG TABLET PO SCH (08:21)
[2021-12-25] MEDS: LEVOTHYROXINE 100 MCG TABLET PO SCH (08:21)
[2021-12-25] MEDS: LORATADINE 10 MG TABLET PO SCH (08:21)
[2021-12-25] MEDS: FOLIC ACID 1 MG TABLET PO SCH (08:21)
--- NOTE | 2021-12-25 09:20 | XRay Report ---
HISTORY: Fell, low back pain FINDINGS: There is a mild depression deformity involving the superior endplate of L2. This is a chronic stable finding, unchanged from the prior lumbar MRI done on 11/09/20. Mild grade 1 spondylolisthesis is present at L4-5 due to arthritis in the facets. This is also a chronic stable finding. There is no fracture or evidence of acute spinal injury. Arthritis is also seen in the facets bilaterally at L5-S1. There are clips in the gallbladder fossa. IMPRESSION: No acute injury Interpreted and Authenticated by: Hadley Dumont 12/25/21
--- NOTE | 2021-12-25 11:08 | Internal Med Progress Note ---
SUBJECTIVE Subjective Patient information: Note initiated : 12/25/21 at 11:06 am Service Date, if different from initiated Date: [] Patient: Whit Anand a 61 y/o F admitted on 12/24/21 for weakness/fall. Chief Complaint: [] Interval history: Ms. Anand is a 61 year old F history of gout, asthma/COPD, depression/anxiety, hypothyroidism, GERD, overactive bladder, essential hypertensions, presenting with general body weakness with frequent falls. She was in our ED yesterday with the same chief complaint and she was being discharged home. Today she returned to our ER for the same complaints. Now the family stated that they are not comfortable of taking the patient's back home. Patient lives by herself. Patient have another episode of falls right in the ER. CT of the head did not reveal any acute intra cranial pathologies. Chest x-ray knee x-ray also have no acute changes. Lumbar x-ray pending. Labs only significant see is mild hyponatremia with serum sodium level 132. UA does not suggest the presence of urinary tract infections. Admission request was called for physical therapy and Occupational Therapy evaluation and treatment and for placement pending. 12/25: No additional episode of fall since hospital admissions. No other major overnight events. Patient denies any pain currently. Therapist recommend shelter placement. Pending shelter placement. Constitutional Vitals: Vital Signs Temp Pulse Resp BP Pulse Ox O2 Del Method 36.2 C 80 16 142/71 95 12/25/21 07:37 12/25/21 07:37 12/25/21 07:37 12/25/21 07:37 12/25/21 07:37 12/25/21 07:37 Period Temp Pulse Resp BP Sys/Palumbo Pulse Ox O2 Del Method O2 Flow Rate Last 24 Hr 36.2 C-37.6 C 80-113 16-20 108-154/56-93 91-100 Room Air-Room Air Intake and Output 12/24/21 12/25/21 12/25/21 21:59 05:59 13:59 Intake Total 240 240 Output Total 1 1 1 Balance -1 239 239 Weight 85.684 kg Intake & Output: Intake & Output 12/24/21 12/25/21 12/25/21 21:59 05:59 13:59 Intake Total 240 240 Output Total 1 1 1 Balance -1 239 239 Weight 85.684 kg Intake: Oral 240 240 Output: # of times incontinent of urine 1 1 1 Other: Meal Breakfast Percent of Meal Consumed 75% Feeding Ability Independent Urine Color Light Ana Cristina # Voids 1 Head Head exam: Present atraumatic and normal inspection Eye Eye exam: Present normal appearance ENT ENT exam: Present mucous membranes moist, normal exam and normal external ear exam Neck Neck exam: Present normal inspection Respiratory Respiratory exam: Present normal respiratory exam Cardiovascular Cardiovascular exam: Present normal rate and rhythm GI/Abdominal GI/Abdominal exam: Present normal bowel sounds Back Exam Back exam: Present normal inspection Neurological Exam Neurological exam: Present alert and oriented X3 Skin Skin exam: Present intact and warm OBJ DATA Labs CBC & Chem 7: 12/25/21 05:53 12/25/21 05:53 Labs: Abnormal Lab Results 12/25/21 12/25/21 12/24/21 05:53 05:53 12:39 RBC 3.41 L Hgb 10.7 L Hct 33.4 L RDW 14.6 H Immature Gran % (Auto) 0.8 H Neut % (Auto) Lymph % (Auto) Martin % (Auto) 13.3 H Lymph # (Auto) Immature Gran # Sodium Glucose 110 H Alkaline Phosphatase Urine Protein 30 mg/dl A Urine Ketones 15 mg/dl A Urine Occult Blood Trace-lysed A Urine Bilirubin Small A Urine Mucus Mod A 12/24/21 12/24/21 11:23 11:23 RBC Hgb Hct RDW Immature Gran % (Auto) 0.8 H Neut % (Auto) 78.2 H Lymph % (Auto) 13.3 L Martin % (Auto) Lymph # (Auto) 1.10 L Immature Gran # 0.07 H Sodium 131 L Glucose 118 H Alkaline Phosphatase 131 H Urine Protein Urine Ketones Urine Occult Blood Urine Bilirubin Urine Mucus Meds: Medications Acetaminophen (Acetaminophen 325 Mg Tablet) 650 mg PO Q6HP PRN; Protocol PRN Reason: Per Pain Protocol/Fever > 101 Albuterol Sulfate (Albuterol Sulfate 200 Puff Inhaler) 2 puff INH Q4-6HP PRN PRN Reason: Shortness Of Breath Or Wheezing Albuterol/Ipratropium (Ipratropium/Albuterol 3 Ml Ampul.Neb) 3 ml NEB Q4HRT PRN PRN Reason: Wheezing Allopurinol (Allopurinol 100 Mg Tablet) 100 mg PO QAM [facility] Last Admin: 12/25/21 08:21 Dose: 100 mg Cyclobenzaprine HCl (Cyclobenzaprine 10 Mg Tablet) 10 mg PO TIDP PRN PRN Reason: Muscle Spasm Docusate Sodium (Docusate Sodium 100 Mg Capsule) 100 mg PO BID [facility] Last Admin: 12/25/21 08:20 Dose: 100 mg Ergocalciferol (Ergocalciferol (Vitamin D2) 50,000 Unit Capsule) 50,000 unit PO QWEEK [facility] Fluoxetine HCl (Fluoxetine Hcl 20 Mg Capsule) 40 mg PO DAILY [facility] Last Admin: 12/25/21 08:20 Dose: 40 mg Folic Acid (Folic Acid 1 Mg Tablet) 1 mg PO QDAY [facility] Last Admin: 12/25/21 08:21 Dose: 1 mg Ibuprofen (Ibuprofen 600 Mg Tablet) 600 mg PO QIDP PRN; Protocol PRN Reason: Per Pain Protocol/Fever > 101 Levothyroxine Sodium (Levothyroxine 100 Mcg Tablet) 100 mcg PO QDAY [facility] Last Admin: 12/25/21 08:21 Dose: 100 mcg Loratadine (Loratadine 10 Mg Tablet) 10 mg PO QAM [facility] Last Admin: 12/25/21 08:21 Dose: 10 mg Methotrexate (Methotrexate Sodium 2.5 Mg Tablet) 22.5 mg PO WEEKLY [facility] Omeprazole (Omeprazole 20 Mg Capsule) 20 mg PO BID [facility] Last Admin: 12/25/21 08:21 Dose: 20 mg Ondansetron HCl (Ondansetron 4 Mg/2 Ml Vial) 4 mg IV Q6HP PRN PRN Reason: Nausea And Vomiting Oxybutynin Chloride (Oxybutynin Chloride 5 Mg Tab.Xl.24h) [facility] Last Admin: 12/25/21 08:21 Dose: 10 mg Senna (Sennosides 1 Tablet) 2 tab PO [facility] Last Admin: 12/24/21 21:27 Dose: 2 tab Sodium Chloride (0.9 % Sodium Chloride 10 Ml Syringe) 10 ml IV Q8 [facility] Last Admin: 12/25/21 05:20 Dose: Not Given Trazodone HCl (Trazodone Hcl 50 Mg Tablet) 25 mg PO HSP PRN PRN Reason: Insomnia Verapamil HCl (Verapamil 180 Mg Tab.Xl.24h) 180 mg PO [facility] Last Admin: 12/24/21 21:27 Dose: 180 mg A/P Assessment and plan (1) Falls: Status: Acute (2) COPD (chronic obstructive pulmonary disease): Status: Chronic Comment: Smoking cessation reviewed 05/10/21 Qualifiers: COPD type: unspecified COPD Qualified Code(s): J44.9 - Chronic obstructive pulmonary disease, unspecified (3) Asthma: Status: Chronic (4) GERD (gastroesophageal reflux disease): Status: Chronic Qualifiers: Esophagitis presence: esophagitis presence not specified Qualified Code(s): K21.9 - Gastro-esophageal reflux disease without esophagitis (5) Depression with anxiety: Status: Chronic (6) Hypothyroidism: Status: Chronic Qualifiers: Hypothyroidism type: acquired Qualified Code(s): E03.9 - Hypothyroidism, unspecified (7) Stress incontinence: Status: Chronic (8) Hypertension: Status: Chronic Comment: Medication reviewed Avoid class 1 antihistamine, cold medicines Increase water, reduce salt/processed foods 4,13,22 Smoking cessation encouraged Qualifiers: Hypertension type: essential hypertension Qualified Code(s): I10 - Essential (primary) hypertension (9) Gout: Status: Chronic (10) Hyponatremia: Status: Acute Narrative A/P Narrative: Assessment and Plans: 1. General body weakness with frequent falls: Observation med surg d/c Aspirin due to fall risk bilingual branch managerpresentation manager therapy Occupational therapy -->recs. SNF placement 2. Mild hyponatremia: Saline lock Repeat BMP in the morning to trend serum sodium level 3. h/o Gout: Continue allopurinol 4. Asthma/COPD: Continue bronchodilators PRN wheezing, currently no evidence of exacerbation 5. Depression with anxiety: Continue Fluoxetine 6. Hypothyroidism: Continue oral thyroid replacement therapy 7. h/o GERD: Continue oral PPI 8. Overactive bladder/stress incontinence: Continue oxybutynin 9. Essential hypertension: Continue Verapamil GI ppx: Continue oral PPI DVT ppx: SCDs Code status: Full Prognosis: stable Disposition: observation med surg; pending SNF placement Time Spent With Patient Time: Total time spent is greater than 50% in coordination of care (as documented) at patient's floor/unit and/or counseling patient: Total time spent with greater than 50% in coordination of care (as documented) at patient's floor/unit and/or counseling patient:: 35 - 50 minutes QUALITY VTE Deep Vein Thrombosis/Pulmonary Embolism Present on Admission: No
--- NOTE | 2021-12-25 18:07 | EKG ---
[facility] Minor Care Test Date: 2021-12-24 Pat Name: Whit Anand Department: ED Room: Gender: Female Early Childhood Aide Classroom: CS : [id number] Requested By: Hugh Pearl Order Number: [id number] Reading MD: Hossein Stevenson Measurements Intervals [place] Rate: 82 P: 59 UT: 137 QRS: 3 QRSD: 101 T: 35 QT: 385 QTc: 450 Interpretive Statements Sinus rhythm Left atrial enlargement Low voltage, precordial leads Electronically Signed On 12-25-2021 18:07:15 PDT by Hossein Stevenson /store/M0/[id number]
[2021-12-25] MEDS: CYCLOBENZAPRINE 10 MG TABLET PO PRN (19:29)
[2021-12-25] MEDS: IBUPROFEN 600 MG TABLET PO PRN (19:29)
[2021-12-25] MEDS: VERAPAMIL 180 MG TAB.XL.24H PO SCH (19:50)
[2021-12-25] MEDS: SENNOSIDES 1 TABLET PO SCH (19:50)
[2021-12-26] MEDS: 0.9 % SODIUM CHLORIDE 10 ML SYRINGE IV SCH ×4 (01:15→20:08)
[2021-12-26] MEDS: OMEPRAZOLE 20 MG CAPSULE PO SCH ×2 (07:53→20:06)
[2021-12-26] MEDS: ALLOPURINOL 100 MG TABLET PO SCH (07:53)
[2021-12-26] MEDS: DOCUSATE SODIUM 100 MG CAPSULE PO SCH ×2 (07:54→20:05)
[2021-12-26] MEDS: FLUoxetine HCL 20 MG CAPSULE PO SCH (07:54)
[2021-12-26] MEDS: FOLIC ACID 1 MG TABLET PO SCH (07:54)
[2021-12-26] MEDS: OXYBUTYNIN CHLORIDE 5 MG TAB.XL.24H PO SCH (07:54)
[2021-12-26] MEDS: LORATADINE 10 MG TABLET PO SCH (07:54)
[2021-12-26] MEDS: LEVOTHYROXINE 100 MCG TABLET PO SCH (07:54)
--- NOTE | 2021-12-26 11:21 | Internal Med Progress Note ---
SUBJECTIVE Subjective Patient information: Note initiated : 12/26/21 at 11:19 am Service Date, if different from initiated Date: [] Patient: Whit Anand a 61 y/o F admitted on 12/24/21 for weakness/fall. Chief Complaint: [] Interval history: Ms. Anand is a 61 year old F history of gout, asthma/COPD, depression/anxiety, hypothyroidism, GERD, overactive bladder, essential hypertensions, presenting with general body weakness with frequent falls. She was in our ED yesterday with the same chief complaint and she was being discharged home. Today she returned to our ER for the same complaints. Now the family stated that they are not comfortable of taking the patient's back home. Patient lives by herself. Patient have another episode of falls right in the ER. CT of the head did not reveal any acute intra cranial pathologies. Chest x-ray knee x-ray also have no acute changes. Lumbar x-ray pending. Labs only significant see is mild hyponatremia with serum sodium level 132. UA does not suggest the presence of urinary tract infections. Admission request was called for physical therapy and Occupational Therapy evaluation and treatment and for placement pending. 12/25: No additional episode of fall since hospital admissions. No other major overnight events. Patient denies any pain currently. Physical and occupational therapists recommend jail placement. Pending jail placement. 12/26: No additional episode of fall since hospital admissions. No other major overnight events. Patient denies any pain currently. Physical and occupational therapists recommend jail placement. Pending jail placement. Constitutional Vitals: Vital Signs Temp Pulse Resp BP Pulse Ox O2 Del Method 36.1 C 66 20 121/62 96 12/26/21 08:00 12/26/21 08:00 12/26/21 08:00 12/26/21 08:00 12/26/21 08:00 12/26/21 08:00 Period Temp Pulse Resp BP Sys/Palumbo Pulse Ox O2 Del Method O2 Flow Rate Last 24 Hr 36.1 C-36.9 C 66-89 16- 116-146/62-80 93-96 Room Air-Room Air Intake and Output 12/25/21 12/26/21 12/26/21 21:59 05:59 13:59 Output Total 2 900 Balance -2 -900 Weight 87.543 kg Intake & Output: Intake & Output 12/25/21 12/26/21 12/26/21 21:59 05:59 13:59 Output Total 2 900 Balance -2 -900 Weight 87.543 kg Output: Void Amount 900 # of times incontinent of urine 2 Other: Urine Appearance Clear Urine Color Bright Yellow Urine Odor Normal Stool Size Moderate Moderate Stool Color Brown Brown Stool Consistency Dry and Hard Soft # Voids 1 # Bowel Movements 1 1 # of times incontinent of 1 Bowels Head Head exam: Present atraumatic and normal inspection Eye Eye exam: Present normal appearance ENT ENT exam: Present mucous membranes moist, normal exam and normal external ear exam Neck Neck exam: Present normal inspection Respiratory Respiratory exam: Present normal respiratory exam Cardiovascular Cardiovascular exam: Present normal rate and rhythm GI/Abdominal GI/Abdominal exam: Present normal bowel sounds Back Exam Back exam: Present normal inspection Neurological Exam Neurological exam: Present alert and oriented X3 Skin Skin exam: Present intact and warm OBJ DATA Labs CBC & Chem 7: 12/25/21 05:53 12/25/21 05:53 Labs: Abnormal Lab Results 12/25/21 12/25/21 12/24/21 05:53 05:53 12:39 RBC 3.41 L Hgb 10.7 L Hct 33.4 L RDW 14.6 H Immature Gran % (Auto) 0.8 H Neut % (Auto) Lymph % (Auto) [place] % (Auto) 13.3 H Lymph # (Auto) Immature Gran # Sodium Glucose 110 H Alkaline Phosphatase Urine Protein 30 mg/dl A Urine Ketones 15 mg/dl A Urine Occult Blood Trace-lysed A Urine Bilirubin Small A Urine Mucus Mod A 12/24/21 12/24/21 11:23 11:23 RBC Hgb Hct RDW Immature Gran % (Auto) 0.8 H Neut % (Auto) 78.2 H Lymph % (Auto) 13.3 L [place] % (Auto) Lymph # (Auto) 1.10 L Immature Gran # 0.07 H Sodium 131 L Glucose 118 H Alkaline Phosphatase 131 H Urine Protein Urine Ketones Urine Occult Blood Urine Bilirubin Urine Mucus Meds: Medications Acetaminophen (Acetaminophen 325 Mg Tablet) 650 mg PO Q6HP PRN; Protocol PRN Reason: Per Pain Protocol/Fever > 101 Albuterol Sulfate (Albuterol Sulfate 200 Puff Inhaler) 2 puff INH Q4-6HP PRN PRN Reason: Shortness Of Breath Or Wheezing Albuterol/Ipratropium (Ipratropium/Albuterol 3 Ml Ampul.Neb) 3 ml NEB Q4HRT PRN PRN Reason: Wheezing Allopurinol (Allopurinol 100 Mg Tablet) 100 mg PO QAM [facility] Last Admin: 12/26/21 07:53 Dose: 100 mg Cyclobenzaprine HCl (Cyclobenzaprine 10 Mg Tablet) 10 mg PO TIDP PRN PRN Reason: Muscle Spasm Last Admin: 12/25/21 19:29 Dose: 10 mg Docusate Sodium (Docusate Sodium 100 Mg Capsule) 100 mg PO BID [facility] Last Admin: 12/26/21 07:54 Dose: 100 mg Ergocalciferol (Ergocalciferol (Vitamin D2) 50,000 Unit Capsule) 50,000 unit PO QWEEK [facility] Fluoxetine HCl (Fluoxetine Hcl 20 Mg Capsule) 40 mg PO DAILY [facility] Last Admin: 12/26/21 07:54 Dose: 40 mg Folic Acid (Folic Acid 1 Mg Tablet) 1 mg PO QDAY [facility] Last Admin: 12/26/21 07:54 Dose: 1 mg Ibuprofen (Ibuprofen 600 Mg Tablet) 600 mg PO QIDP PRN; Protocol PRN Reason: Per Pain Protocol/Fever > 101 Last Admin: 12/25/21 19:29 Dose: 600 mg Levothyroxine Sodium (Levothyroxine 100 Mcg Tablet) 100 mcg PO QDAY [facility] Last Admin: 12/26/21 07:54 Dose: 100 mcg Loratadine (Loratadine 10 Mg Tablet) 10 mg PO [facility] Last Admin: 12/26/21 07:54 Dose: 10 mg Methotrexate (Methotrexate Sodium 2.5 Mg Tablet) 22.5 mg PO WEEKLY [facility] Omeprazole (Omeprazole 20 Mg Capsule) 20 mg PO BID [facility] Last Admin: 12/26/21 07:53 Dose: 20 mg Ondansetron HCl (Ondansetron 4 Mg/2 Ml Vial) 4 mg IV Q6HP PRN PRN Reason: Nausea And Vomiting Oxybutynin Chloride (Oxybutynin Chloride 5 Mg Tab.Xl.24h) [facility] Last Admin: 12/26/21 07:54 Dose: 10 mg Senna (Sennosides 1 Tablet) 2 tab PO HS [facility] Last Admin: 12/25/21 19:50 Dose: 2 tab Sodium Chloride (0.9 % Sodium Chloride 10 Ml Syringe) 10 ml IV Q8 [facility] Last Admin: 12/26/21 04:09 Dose: Not Given Trazodone HCl (Trazodone Hcl 50 Mg Tablet) 25 mg PO HSP PRN PRN Reason: Insomnia Verapamil HCl (Verapamil 180 Mg Tab.Xl.24h) 180 mg PO HS [facility] Last Admin: 12/25/21 19:50 Dose: 180 mg A/P Assessment and plan (1) Falls: Status: Acute (2) COPD (chronic obstructive pulmonary disease): Status: Chronic Comment: Smoking cessation reviewed 05/10/21 Qualifiers: COPD type: unspecified COPD Qualified Code(s): J44.9 - Chronic obstructive pulmonary disease, unspecified (3) Asthma: Status: Chronic (4) GERD (gastroesophageal reflux disease): Status: Chronic Qualifiers: Esophagitis presence: esophagitis presence not specified Qualified Code(s): K21.9 - Gastro-esophageal reflux disease without esophagitis (5) Depression with anxiety: Status: Chronic (6) Hypothyroidism: Status: Chronic Qualifiers: Hypothyroidism type: acquired Qualified Code(s): E03.9 - Hypothyroidism, unspecified (7) Stress incontinence: Status: Chronic (8) Hypertension: Status: Chronic Comment: Medication reviewed Avoid class 1 antihistamine, cold medicines Increase water, reduce salt/processed foods 4,,22 Smoking cessation encouraged Qualifiers: Hypertension type: essential hypertension Qualified Code(s): I10 - Essential (primary) hypertension (9) Gout: Status: Chronic (10) Hyponatremia: Status: Acute Narrative A/P Narrative: Assessment and Plans: 1. 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 SNF placement Occupational therapy -->recs. SNF placement 2. Mild hyponatremia: Saline lock Repeat BMP in the morning to trend serum sodium level 3. h/o Gout: Continue allopurinol 4. Asthma/COPD: Continue bronchodilators PRN wheezing, currently no evidence of exacerbation 5. Depression with anxiety: Continue Fluoxetine 6. Hypothyroidism: Continue oral thyroid replacement therapy 7. h/o GERD: Continue oral PPI 8. Overactive bladder/stress incontinence: Continue oxybutynin 9. Essential hypertension: Continue Verapamil GI ppx: Continue oral PPI DVT ppx: SCDs Code status: Full Prognosis: stable Disposition: observation med surg; pending SNF placement Time Spent With Patient Time: Total time spent is greater than 50% in coordination of care (as documented) at patient's floor/unit and/or counseling patient: Total time spent with greater than 50% in coordination of care (as documented) at patient's floor/unit and/or counseling patient:: 25 - 35 minutes QUALITY VTE Deep Vein Thrombosis/Pulmonary Embolism Present on Admission: No
[2021-12-26] MEDS: traZODone HCL 50 MG TABLET PO PRN (20:06)
[2021-12-26] MEDS: VERAPAMIL 180 MG TAB.XL.24H PO SCH (20:07)
[2021-12-26] MEDS: SENNOSIDES 1 TABLET PO SCH (20:07)
[2021-12-27] MEDS: 0.9 % SODIUM CHLORIDE 10 ML SYRINGE IV SCH ×3 (04:02→20:17)
[2021-12-27] MEDS: OXYBUTYNIN CHLORIDE 5 MG TAB.XL.24H PO SCH (08:37)
[2021-12-27] MEDS: FOLIC ACID 1 MG TABLET PO SCH (08:37)
[2021-12-27] MEDS: OMEPRAZOLE 20 MG CAPSULE PO SCH ×2 (08:37→20:16)
[2021-12-27] MEDS: FLUoxetine HCL 20 MG CAPSULE PO SCH (08:37)
[2021-12-27] MEDS: DOCUSATE SODIUM 100 MG CAPSULE PO SCH ×2 (08:37→20:16)
[2021-12-27] MEDS: LORATADINE 10 MG TABLET PO SCH (08:37)
[2021-12-27] MEDS: ALLOPURINOL 100 MG TABLET PO SCH (08:38)
[2021-12-27] MEDS: LEVOTHYROXINE 100 MCG TABLET PO SCH (08:38)
--- NOTE | 2021-12-27 10:15 | Internal Med Progress Note ---
SUBJECTIVE Subjective Patient information: Note initiated : 12/27/21 at 10:13 am Service Date, if different from initiated Date: [] Patient: Whit Anand a 61 y/o F admitted on 12/24/21 for weakness/fall. Chief Complaint: [Failure to thrive] Principal diagnosis: Multiple falls, failure to thrive Interval history: Ms. Anand is a 61 year old F history of gout, asthma/COPD, depression/anxiety, hypothyroidism, GERD, overactive bladder, essential hypertensions, presenting with general body weakness with frequent falls. She was in our ED yesterday with the same chief complaint and she was being discharged home. Today she returned to our ER for the same complaints. Now the family stated that they are not comfortable of taking the patient's back home. Patient lives by herself. Patient have another episode of falls right in the ER. CT of the head did not reveal any acute intra cranial pathologies. Chest x-ray knee x-ray also have no acute changes. Lumbar x-ray pending. Labs only significant see is mild hyp onatremia with serum sodium level 132. UA does not suggest the presence of urinary tract infections. Admission request was called for physical therapy and Occupational Therapy evaluation and treatment and for placement pending. 12/25: No additional episode of fall since hospital admissions. No other major overnight events. Patient denies any pain currently. Physical and occupational therapists recommend alf placement. Pending alf placement. 12/26: No additional episode of fall since hospital admissions. No other major overnight events. Patient denies any pain currently. Physical and occupational therapists recommend alf placement. Pending alf placement. 12/27: Clinically, the patient is status quo Constitutional Vitals: Vital Signs Temp Pulse Resp BP Pulse Ox O2 Del Method 97.5 F 82 20 106/63 94 12/27/21 08:00 12/27/21 08:00 12/27/21 08:00 12/27/21 08:00 12/27/21 08:00 12/27/21 08:00 Period Temp Pulse Resp BP Sys/Palumbo Pulse Ox O2 Del Method O2 Flow Rate Last 24 Hr 97.5 F-99.1 F 77-94 18-26 103-128/55-72 93-97 Room Air-Room Air Intake and Output 12/26/21 12/27/21 12/27/21 21:59 05:59 13:59 Intake Total 220 720 Output Total 125 650 300 Balance 95 70 -300 Weight 87.543 kg Intake & Output: Intake & Output 12/26/21 12/27/21 12/27/21 21:59 05:59 13:59 Intake Total 220 720 Output Total 125 650 300 Balance 95 70 -300 Weight 87.543 kg Intake: Oral 220 720 Output: Void Amount 125 650 300 Other: Meal Dinner Percent of Meal Consumed 100% Feeding Ability Assist with Tray Set Up Urine Appearance Clear Clear Clear Urine Color Dark Yellow Dark Yellow Bright Yellow Urine Odor Normal Normal Normal Head Head exam: Present atraumatic and normal inspection Eye Eye exam: Present normal appearance ENT ENT exam: Present mucous membranes moist, normal exam and normal external ear exam Neck Neck exam: Present normal inspection Respiratory Respiratory exam: Present normal respiratory exam Cardiovascular Cardiovascular exam: Present normal rate and rhythm GI/Abdominal GI/Abdominal exam: Present normal bowel sounds Back Exam Back exam: Present normal inspection Neurological Exam Neurological exam: Present alert and oriented X3 Skin Skin exam: Present intact and warm OBJ DATA Labs CBC & Chem 7: 12/25/21 05:53 12/25/21 05:53 Labs: Abnormal Lab Results 12/25/21 12/25/21 12/24/21 05:53 05:53 12:39 RBC 3.41 L Hgb 10.7 L Hct 33.4 L RDW 14.6 H Immature Gran % (Auto) 0.8 H Neut % (Auto) Lymph % (Auto) [place] % (Auto) 13.3 H Lymph # (Auto) Immature Gran # Sodium Glucose 110 H Alkaline Phosphatase Urine Protein 30 mg/dl A Urine Ketones 15 mg/dl A Urine Occult Blood Trace-lysed A Urine Bilirubin Small A Urine Mucus Mod A 12/24/21 12/24/21 11:23 11:23 RBC Hgb Hct RDW Immature Gran % (Auto) 0.8 H Neut % (Auto) 78.2 H Lymph % (Auto) 13.3 L [place] % (Auto) Lymph # (Auto) 1.10 L Immature Gran # 0.07 H Sodium 131 L Glucose 118 H Alkaline Phosphatase 131 H Urine Protein Urine Ketones Urine Occult Blood Urine Bilirubin Urine Mucus Meds: Medications Acetaminophen (Acetaminophen 325 Mg Tablet) 650 mg PO Q6HP PRN; Protocol PRN Reason: Per Pain Protocol/Fever > 101 Last Admin: 12/26/21 17:32 Dose: 650 mg Albuterol Sulfate (Albuterol Sulfate 200 Puff Inhaler) 2 puff INH Q4-6HP PRN PRN Reason: Shortness Of Breath Or Wheezing Albuterol/Ipratropium (Ipratropium/Albuterol 3 Ml Ampul.Neb) 3 ml NEB Q4HRT PRN PRN Reason: Wheezing Allopurinol (Allopurinol 100 Mg Tablet) 100 mg PO QAM [facility] Last Admin: 12/27/21 08:38 Dose: 100 mg Cyclobenzaprine HCl (Cyclobenzaprine 10 Mg Tablet) 10 mg PO TIDP PRN PRN Reason: Muscle Spasm Last Admin: 12/25/21 19:29 Dose: 10 mg Docusate Sodium (Docusate Sodium 100 Mg Capsule) 100 mg PO BID [facility] Last Admin: 12/27/21 08:37 Dose: 100 mg Ergocalciferol (Ergocalciferol (Vitamin D2) 50,000 Unit Capsule) 50,000 unit PO QWEEK [facility] Fluoxetine HCl (Fluoxetine Hcl 20 Mg Capsule) 40 mg PO DAILY [facility] Last Admin: 12/27/21 08:37 Dose: 40 mg Folic Acid (Folic Acid 1 Mg Tablet) 1 mg PO QDAY [facility] Last Admin: 12/27/21 08:37 Dose: 1 mg Ibuprofen (Ibuprofen 600 Mg Tablet) 600 mg PO QIDP PRN; Protocol PRN Reason: Per Pain Protocol/Fever > 101 Last Admin: 12/25/21 19:29 Dose: 600 mg Levothyroxine Sodium (Levothyroxine 100 Mcg Tablet) 100 mcg PO QDAY [facility] Last Admin: 12/27/21 08:38 Dose: 100 mcg Loratadine (Loratadine 10 Mg Tablet) [facility] [place] Last Admin: 12/27/21 08:37 Dose: 10 mg Methotrexate (Methotrexate Sodium 2.5 Mg Tablet) 22.5 mg PO WEEKLY [facility] Omeprazole (Omeprazole 20 Mg Capsule) 20 mg PO BID [facility] Last Admin: 12/27/21 08:37 Dose: 20 mg Ondansetron HCl (Ondansetron 4 Mg/2 Ml Vial) 4 mg IV Q6HP PRN PRN Reason: Nausea And Vomiting Oxybutynin Chloride (Oxybutynin Chloride 5 Mg Tab.Xl.24h) [facility] [place] Last Admin: 12/27/21 08:37 Dose: 10 mg Senna (Sennosides 1 Tablet) 2 tab PO [facility] Last Admin: 12/26/21 20:07 Dose: 2 tab Sodium Chloride (0.9 % Sodium Chloride 10 Ml Syringe) 10 ml IV Q8 [facility] Last Admin: 12/27/21 04:02 Dose: Not Given Trazodone HCl (Trazodone Hcl 50 Mg Tablet) 25 mg PO HSP PRN PRN Reason: Insomnia Last Admin: 12/26/21 20:06 Dose: 25 mg Verapamil HCl (Verapamil 180 Mg Tab.Xl.24h) 180 mg PO [facility] Last Admin: 12/26/21 20:07 Dose: 180 mg A/P Assessment and plan (1) Falls: Status: Acute (2) COPD (chronic obstructive pulmonary disease): Status: Chronic Comment: Smoking cessation reviewed 05/10/21 Qualifiers: COPD type: unspecified COPD Qualified Code(s): J44.9 - Chronic obstructive pulmonary disease, unspecified (3) Asthma: Status: Chronic (4) GERD (gastroesophageal reflux disease): Status: Chronic Qualifiers: Esophagitis presence: esophagitis presence not specified Qualified Code(s): K21.9 - Gastro-esophageal reflux disease without esophagitis (5) Depression with anxiety: Status: Chronic (6) Hypothyroidism: Status: Chronic Qualifiers: Hypothyroidism type: acquired Qualified Code(s): E03.9 - Hypothyroidism, unspecified (7) Stress incontinence: Status: Chronic (8) Hypertension: Status: Chronic Comment: Medication reviewed Avoid class 1 antihistamine, cold medicines Increase water, reduce salt/processed foods 4,13,22 Smoking cessation encouraged Qualifiers: Hypertension type: essential hypertension Qualified Code(s): I10 - Essential (primary) hypertension (9) Gout: Status: Chronic (10) Hyponatremia: Status: Acute Narrative A/P Narrative: Assessment and Plans: 1. General body weakness with frequent falls: Observation med surg d/c Aspirin due to fall risk online community managerregistered nurse hh case manager therapy -->recs. SNF placement Occupational therapy -->recs. SNF placement 2. Mild hyponatremia: Saline lock Repeat BMP in the morning to trend serum sodium level 3. h/o Gout: Continue allopurinol 4. Asthma/COPD: Continue bronchodilators PRN wheezing, currently no evidence of exacerbation 5. Depression with anxiety: Continue Fluoxetine 6. Hypothyroidism: Continue oral thyroid replacement therapy 7. h/o GERD: Continue oral PPI 8. Overactive bladder/stress incontinence: Continue oxybutynin 9. Essential hypertension: Continue Verapamil GI ppx: Continue oral PPI DVT ppx: SCDs Code status: Full Prognosis: stable Disposition: observation med surg; pending SNF placement Time Spent With Patient Time: Total time spent is greater than 50% in coordination of care (as documented) at patient's floor/unit and/or counseling patient: Total time spent with greater than 50% in coordination of care (as documented) at patient's floor/unit and/or counseling patient:: 25 - 35 minutes QUALITY VTE Deep Vein Thrombosis/Pulmonary Embolism Present on Admission: No
[2021-12-27] MEDS: VERAPAMIL 180 MG TAB.XL.24H PO SCH (20:16)
[2021-12-27] MEDS: traZODone HCL 50 MG TABLET PO PRN (20:16)
[2021-12-27] MEDS: SENNOSIDES 1 TABLET PO SCH (20:17)
[2021-12-28] MEDS: 0.9 % SODIUM CHLORIDE 10 ML SYRINGE IV SCH ×3 (06:08→21:06)
[2021-12-28] MEDS: OMEPRAZOLE 20 MG CAPSULE PO SCH ×2 (08:46→21:05)
[2021-12-28] MEDS: LORATADINE 10 MG TABLET PO SCH (08:46)
[2021-12-28] MEDS: ALLOPURINOL 100 MG TABLET PO SCH (08:46)
[2021-12-28] MEDS: DOCUSATE SODIUM 100 MG CAPSULE PO SCH ×2 (08:46→21:05)
[2021-12-28] MEDS: LEVOTHYROXINE 100 MCG TABLET PO SCH (08:46)
[2021-12-28] MEDS: FOLIC ACID 1 MG TABLET PO SCH (08:46)
[2021-12-28] MEDS: OXYBUTYNIN CHLORIDE 5 MG TAB.XL.24H PO SCH (08:46)
[2021-12-28] MEDS: FLUoxetine HCL 20 MG CAPSULE PO SCH (08:46)
--- NOTE | 2021-12-28 11:29 | Internal Med Progress Note ---
SUBJECTIVE Subjective Patient information: Note initiated : 12/28/21 at 11:27 am Service Date, if different from initiated Date: [] Patient: Whit Anand a 61 y/o F admitted on 12/24/21 for weakness/fall. Chief Complaint: [] Principal diagnosis: Multiple falls, failure to thrive Interval history: Ms. Anand is a 61 year old F history of gout, asthma/COPD, depression/anxiety, hypothyroidism, GERD, overactive bladder, essential hypertensions, presenting with general body weakness with frequent falls. She was in our ED yesterday with the same chief complaint and she was being discharged home. Today she returned to our ER for the same complaints. Now the family stated that they are not comfortable of taking the patient's back home. Patient lives by herself. Patient have another episode of falls right in the ER. CT of the head did not reveal any acute intra cranial pathologies. Chest x-ray knee x-ray also have no acute changes. Lumbar x-ray pending. Labs only significant see is mild hyponatremia with serum sodium level 132. UA does not suggest the presence of urinary tract infections. Admission request was called for physical therapy and Occupational Therapy evaluation and treatment and for placement pending. 12/25: No additional episode of fall since hospital admissions. No other major overni ght events. Patient denies any pain currently. Physical and occupational therapists [facility] 12/26: No additional episode of fall since hospital admissions. No other major overnight events. Patient denies any pain currently. Physical and occupational therapists [facility]. [facility]. 12/27: Clinically, the patient is status quo 8/3: The patient was resting comfortably in bed. She had no active complaints or concerns. We are still awaiting insurance authorization. Constitutional Vitals: Vital Signs Temp Pulse Resp BP Pulse Ox O2 Del Method 98.3 F 81 20 140/89 94 12/28/21 08:00 12/28/21 08:00 12/28/21 08:00 12/28/21 08:00 12/28/21 08:00 12/28/21 08:00 Period Temp Pulse Resp BP Sys/Palumbo Pulse Ox O2 Del Method O2 Flow Rate Last 24 Hr 97.6 F-98.3 F 80-89 20-22 108-143/66-89 93-96 Room Air-Room Air Intake and Output 12/27/21 12/28/21 12/28/21 21:59 05:59 13:59 Intake Total 360 440 120 Output Total 550 351 Balance -190 89 120 Weight 86.664 kg Intake & Output: Intake & Output 12/27/21 12/28/21 12/28/21 21:59 05:59 13:59 Intake Total 360 440 120 Output Total 550 351 Balance -190 89 120 Weight 86.664 kg Intake: Oral 360 440 120 Output: Void Amount 550 350 # of times incontinent of urine 1 Other: Meal Dinner Breakfast Percent of Meal Consumed 100% 100% Feeding Ability Independent Urine Appearance Clear Urine Color Bright Yellow Yellow Stool Size Large Moderate Stool Color Brown Brown Stool Consistency Formed Soft # Voids 1 # Bowel Movements 1 1 Head Head exam: Present atraumatic and normal inspection Eye Eye exam: Present normal appearance ENT ENT exam: Present mucous membranes moist, normal exam and normal external ear exam Neck Neck exam: Present normal inspection Respiratory Respiratory exam: Present normal respiratory exam Cardiovascular Cardiovascular exam: Present normal rate and rhythm GI/Abdominal GI/Abdominal exam: Present normal bowel sounds Back Exam Back exam: Present normal inspection Neurological Exam Neurological exam: Present alert and oriented X3 Skin Skin exam: Present intact and warm OBJ DATA Labs CBC & Chem 7: 12/25/21 05:53 12/25/21 05:53 Meds: Medications Acetaminophen (Acetaminophen 325 Mg Tablet) 650 mg PO Q6HP PRN; Protocol PRN Reason: Per Pain Protocol/Fever > 101 Last Admin: 12/26/21 17:32 Dose: 650 mg Albuterol Sulfate (Albuterol Sulfate 200 Puff Inhaler) 2 puff INH Q4-6HP PRN PRN Reason: Shortness Of Breath Or Wheezing Albuterol/Ipratropium (Ipratropium/Albuterol 3 Ml Ampul.Neb) 3 ml NEB Q4HRT PRN PRN Reason: Wheezing Allopurinol (Allopurinol 100 Mg Tablet) 100 mg PO QAM [facility] Last Admin: 12/28/21 08:46 Dose: 100 mg Cyclobenzaprine HCl (Cyclobenzaprine 10 Mg Tablet) 10 mg PO TIDP PRN PRN Reason: Muscle Spasm Last Admin: 12/25/21 19:29 Dose: 10 mg Docusate Sodium (Docusate Sodium 100 Mg Capsule) 100 mg PO BID [facility] Last Admin: 12/28/21 08:46 Dose: 100 mg Ergocalciferol (Ergocalciferol (Vitamin D2) 50,000 Unit Capsule) 50,000 unit PO QWEEK [facility] Fluoxetine HCl (Fluoxetine Hcl 20 Mg Capsule) 40 mg PO DAILY [facility] Last Admin: 12/28/21 08:46 Dose: 40 mg Folic Acid (Folic Acid 1 Mg Tablet) 1 mg PO QDAY [facility] Last Admin: 12/28/21 08:46 Dose: 1 mg Ibuprofen (Ibuprofen 600 Mg Tablet) 600 mg PO QIDP PRN; Protocol PRN Reason: Per Pain Protocol/Fever > 101 Last Admin: 12/25/21 19:29 Dose: 600 mg Levothyroxine Sodium (Levothyroxine 100 Mcg Tablet) 100 mcg PO QDAY [facility] Last Admin: 12/28/21 08:46 Dose: 100 mcg Loratadine (Loratadine 10 Mg Tablet) 10 mg PO QAM [facility] Last Admin: 12/28/21 08:46 Dose: 10 mg Methotrexate (Methotrexate Sodium 2.5 Mg Tablet) 22.5 mg PO WEEKLY [facility] Omeprazole (Omeprazole 20 Mg Capsule) 20 mg PO BID [facility] Last Admin: 12/28/21 08:46 Dose: 20 mg Ondansetron HCl (Ondansetron 4 Mg/2 Ml Vial) 4 mg IV Q6HP PRN PRN Reason: Nausea And Vomiting Oxybutynin Chloride (Oxybutynin Chloride 5 Mg Tab.Xl.24h) 10 mg PO QAM [facility] Last Admin: 12/28/21 08:46 Dose: 10 mg Senna (Sennosides 1 Tablet) 2 tab PO [facility] Last Admin: 12/27/21 20:17 Dose: Not Given Sodium Chloride (0.9 % Sodium Chloride 10 Ml Syringe) 10 ml IV Q8 [facility] Last Admin: 12/28/21 06:08 Dose: Not Given Trazodone HCl (Trazodone Hcl 50 Mg Tablet) 25 mg PO HSP PRN PRN Reason: Insomnia Last Admin: 12/27/21 20:16 Dose: 25 mg Verapamil HCl (Verapamil 180 Mg Tab.Xl.24h) 180 mg PO [facility] Last Admin: 12/27/21 20:16 Dose: 180 mg A/P Assessment and plan (1) Falls: Status: Acute (2) COPD (chronic obstructive pulmonary disease): Status: Chronic Comment: Smoking cessation reviewed 05/10/21 Qualifiers: COPD type: unspecified COPD Qualified Code(s): J44.9 - Chronic obstructive pulmonary disease, unspecified (3) Asthma: Status: Chronic (4) GERD (gastroesophageal reflux disease): Status: Chronic Qualifiers: Esophagitis presence: esophagitis presence not specified Qualified Code(s): K21.9 - Gastro-esophageal reflux disease without esophagitis (5) Depression with anxiety: Status: Chronic (6) Hypothyroidism: Status: Chronic Qualifiers: Hypothyroidism type: acquired Qualified Code(s): E03.9 - Hypothyroidism, unspecified (7) Stress incontinence: Status: Chronic (8) Hypertension: Status: Chronic Comment: Medication reviewed Avoid class 1 antihistamine, cold medicines Increase water, reduce salt/processed foods 4,13,22 Smoking cessation encouraged Qualifiers: Hypertension type: essential hypertension Qualified Code(s): I10 - Essential (primary) hypertension (9) Gout: Status: Chronic (10) Hyponatremia: Status: Acute Narrative A/P Narrative: Assessment and Plans: 1. 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 SNF placement Occupational therapy -->recs. SNF placement 2. Mild hyponatremia: Saline lock Repeat BMP in the morning to trend serum sodium level 3. h/o Gout: Continue allopurinol 4. Asthma/COPD: Continue bronchodilators PRN wheezing, currently no evidence of exacerbation 5. Depression with anxiety: Continue Fluoxetine 6. Hypothyroidism: Continue oral thyroid replacement therapy 7. h/o GERD: Continue oral PPI 8. Overactive bladder/stress incontinence: Continue oxybutynin 9. Essential hypertension: Continue Verapamil GI ppx: Continue oral PPI DVT ppx: SCDs Code status: Full Prognosis: stable Disposition: observation med surg; pending SNF placement Time Spent With Patient Time: Total time spent is greater than 50% in coordination of care (as documented) at patient's floor/unit and/or counseling patient: Total time spent with greater than 50% in coordination of care (as documented) at patient's floor/unit and/or counseling patient:: 25 - 35 minutes QUALITY VTE Deep Vein Thrombosis/Pulmonary Embolism Present on Admission: No
[2021-12-28] MEDS: CYCLOBENZAPRINE 10 MG TABLET PO PRN (18:40)
[2021-12-28] MEDS: IBUPROFEN 600 MG TABLET PO PRN (18:40)
[2021-12-28] MEDS: SENNOSIDES 1 TABLET PO SCH (21:05)
[2021-12-28] MEDS: VERAPAMIL 180 MG TAB.XL.24H PO SCH (21:06)
[2021-12-28] MEDS: traZODone HCL 50 MG TABLET PO PRN (21:06)
[2021-12-29] MEDS: 0.9 % SODIUM CHLORIDE 10 ML SYRINGE IV SCH (04:41)
--- NOTE | 2021-12-29 07:57 | Discharge Summary ---
Discharge Provider Provider IMPORTANT FOLLOW-UP INFORMATION FOR PCP: Patient information: Note initiated : 12/29/21 at 7:57 am Service Date, if different from initiated Date: [] Patient: Whit Anand a 61 y/o F admitted on 12/24/21 for weakness/fall. Chief Complaint: [Falls] Date of admission: 12/24/21 18:33 Discharge date: 12/29/21 Primary care physician: ENRIQUE Keane Consults: 12/24/21 Consult to Physician [CONS] Stat Comment: Consulting Provider: Lino Kang Reason For Exam: Physician to Consult Attending physician on discharge: Jasmit Razia COURSE Hospital Course Hospital course: Interval history: Ms. Anand is a 61 year old F history of gout, asthma/COPD, depression/anxiety, hypothyroidism, GERD, overactive bladder, essential hypertensions, presenting with general body weakness with frequent falls. She was in our ED yesterday with the same chief complaint and she was being discharged home. Today she returned to our ER for the same complaints. Now the family stated that they are not comfortable of taking the patient's back home. Patient lives by herself. Patient have another episode of falls right in the ER. CT of the head did not reveal any acute intra cranial pathologies. Chest x-ray knee x-ray also have no acute changes. Lumbar x-ray pending. Labs only significant see is mild hyponatremia with serum sodium level 132. UA does not suggest the presence of urinary tract infections. Admission request was called for physical therapy and Occupational Therapy evaluation and treatment and for placement pending. 12/25: No additional episode of fall since hospital admissions. No other major overnight events. Patient denies any pain currently. Physical and occupational therapists recommend shelter placement. Pending shelter placement. 12/26: No additional episode of fall since hospital admissions. No other major overnight events. Patient denies any pain currently. Physical and occupational therapists recommend shelter placement. Pending shelter placement. 12/27: Clinically, the patient is status quo 3: The patient was resting comfortably in bed. She had no active complaints or concerns. We are still awaiting insurance authorization. 12/29: The patient has completed course of abx for UTI. She will be discharged to SNF today. Discharge diagnosis: UTI, weakness, multiple falls Time Spent with Patient Time attestation: Total time spent providing and/or coordinating discharge services: Time spent: Greater than 30 minutes EXAM Constitutional Vitals: Temp Pulse Resp BP Pulse Ox O2 Del Method 97.1 F 73 12 108/56 95 12/29/21 06:48 12/29/21 06:48 12/29/21 06:48 12/29/21 06:48 12/29/21 06:48 12/29/21 06:48 General appearance: average body habitus Head Head exam: Present atraumatic, normal inspection and normocephalic Eye Eye exam: Present EOMI, normal appearance and PERRL; Absent conjunctival injection ENT ENT exam: Present normal exam; Absent mucous membranes dry Neck Neck exam: Present full ROM; Absent lymphadenopathy Respiratory Respiratory exam: Present normal respiratory exam and CTAB; Absent decreased breath sounds, respiratory distress or wheezes Cardiovascular Cardiovascular exam: Present normal rate and rhythm and RRR; Absent JVD GI/Abdominal GI/Abdominal exam: Present normal bowel sounds and soft; Absent diminished bowel sounds, distended, guarding, mass, rebound or tenderness Neurological Exam Neurological exam: Present alert, CN II-XII intact and oriented X3 Psychiatric Psychiatric exam: Present normal affect and normal mood Skin Skin exam: Present intact and warm; Absent erythema, pallor, petechiae or rash Discharge Plan Patient/Caregiver Discharge Instructions Activity: as per physical therapy Diet: Regular Diet Instructions: Fall Prevention (DC) Prescriptions: Continued oxybutynin chloride 10 mg tablet extended release 24hr See Rx Instructions .ROUTE .COMPLEX Qty: 30 6RF Dose Instruction: TAKE ONE TABLET BY MOUTH ONCE DAILY IN THE MORNING Rx Instructions: TAKE ONE TABLET BY MOUTH ONCE DAILY IN THE MORNING verapamil 180 mg tablet extended release See Rx Instructions .ROUTE .COMPLEX Qty: 90 1RF Dose Instruction: TAKE ONE TABLET BY MOUTH ONCE DAILY AT BEDTIME Rx Instructions: TAKE ONE TABLET BY MOUTH ONCE DAILY AT BEDTIME omeprazole 20 mg capsule,delayed release(DR/EC) See Rx Instructions .ROUTE .COMPLEX Qty: 60 11RF Dose Instruction: TAKE ONE CAPSULE BY MOUTH TWICE DAILY FOR STOMACH Rx Instructions: TAKE ONE CAPSULE BY MOUTH TWICE DAILY FOR STOMACH loratadine 10 mg tablet See Rx Instructions .ROUTE .COMPLEX Qty: 30 2RF Dose Instruction: TAKE ONE TABLET BY MOUTH ONCE DAILY Rx Instructions: TAKE ONE TABLET BY MOUTH ONCE DAILY methotrexate sodium 2.5 mg tablet 22.5 mg PO WEEKLY Qty: 36 5RF folic acid 1 mg tablet 1 mg PO QDAY Qty: 90 0RF cyclobenzaprine 10 mg tablet See Rx Instructions .ROUTE .COMPLEX Qty: 60 1RF Dose Instruction: TAKE ONE TABLET BY MOUTH THREE TIMES DAILY NEEDED FOR ANALGESIA Rx Instructions: TAKE ONE TABLET BY MOUTH THREE TIMES DAILY NEEDED FOR ANALGESIA allopurinol 100 mg tablet See Rx Instructions .ROUTE .COMPLEX Qty: 30 3RF Dose Instruction: TAKE ONE TABLET BY MOUTH ONCE DAILY Rx Instructions: TAKE ONE TABLET BY MOUTH ONCE DAILY fluoxetine 40 mg capsule See Rx Instructions .ROUTE .COMPLEX Qty: 90 1RF Dose Instruction: TAKE ONE CAPSULE BY MOUTH ONCE DAILY Rx Instructions: TAKE ONE CAPSULE BY MOUTH ONCE DAILY ergocalciferol (vitamin D2) 1,250 mcg (50,000 unit) capsule 1,250 mcg PO QWEEK Qty: 8 0RF levothyroxine 100 mcg tablet 100 mcg PO QDAY Qty: 60 1RF Rx Instructions: Take on empty stomach with water, wait 40 minutes to eat/drink. cholecalciferol (vitamin D3) 1,250 mcg (50,000 unit) capsule 1,250 mcg PO QWEEK Qty: 8 0RF albuterol sulfate 90 mcg/actuation HFA aerosol inhaler 2 puff INHALATION Q4-6HP PRN (Reason: Shortness Of Breath Or Wheezing) Qty: 18 1RF aspirin 81 MG tablet,delayed release (DR/EC) 81 mg PO (DME) Depends XL l See Rx Instructions Rx Instructions: change when soiled Follow Up Plan Follow up with: Kaykay Leigh ARNP [Primary Care Provider] - Patient Disposition: Xfer SNF Prognosis: Fair Rehab Potential: Good I certify that the patient requires SNF services: Yes Overall status at discharge: patient is progressing back to baseline Discharge Orders: Discharge Order (Routine); Ordered 12/29/21 Ordered By: Amara HDEZ VTE Deep Vein Thrombosis/Pulmonary Embolism Present on Admission: No
[2021-12-29] MEDS: FLUoxetine HCL 20 MG CAPSULE PO SCH (08:42)
[2021-12-29] MEDS: DOCUSATE SODIUM 100 MG CAPSULE PO SCH (08:42)
[2021-12-29] MEDS: OMEPRAZOLE 20 MG CAPSULE PO SCH (08:42)
[2021-12-29] MEDS: LEVOTHYROXINE 100 MCG TABLET PO SCH (08:43)
[2021-12-29] MEDS: OXYBUTYNIN CHLORIDE 5 MG TAB.XL.24H PO SCH (08:43)
[2021-12-29] MEDS: ALLOPURINOL 100 MG TABLET PO SCH (08:43)
[2021-12-29] MEDS: LORATADINE 10 MG TABLET PO SCH (08:43)
[2021-12-29] MEDS: FOLIC ACID 1 MG TABLET PO SCH (08:43)
[2021-12-30] MEDS ORDERED: METHOTREXATE SODIUM 2.5 MG TABLET PO SCH (09:00)
[2021-12-31] MEDS ORDERED: ERGOCALCIFEROL (VITAMIN D2) 50,000 UNIT CAPSULE PO SCH (09:00)
[2021-12-31] MEDS ORDERED: NON FORMULARY MEDICATION 1 DOSE MISCELL (Cholecalciferol (Vitamin D3) 1,250 mcg (50,000 un PO SCH (09:00)
== END 2021-12-29 10:40 ==
LOC: MEDSUR 10:18 → ED 10:18 → MEDSUR 18:34
PROVIDERS: ADMIT Internal Medicine; ATTEND Student in an Organized Health Care Education/Training Program

== ENCOUNTER 2023-12-07 17:48 | Inpatient (IN) ==
[2023-12-07] MEDS: ACETAMINOPHEN 325 MG TABLET PO ONE (19:39)
[2023-12-07] MEDS: 0.9 % SODIUM CHLORIDE 1,000 ML IV ONE (19:39)
[2023-12-07 19:54] LABS: Basophils # (Auto) 0.03 K/mcL (0.00-0.30); Basophils % (Auto) 0.3 % (0.0-2.0); Eosinophils # (Auto) 0.26 K/mcL (0.00-0.70); Eosinophils % (Auto) 2.3 % (0.0-7.0); Hematocrit 36.3 % (34.1-44.9); Lymphocytes # (Auto) 2.79 K/mcL (1.50-4.80); Lymphocytes % (Auto) 24.6 % (15.5-49.0); Mean Cell Volume 96.3 fL (80.0-100.0); Mean Corpuscular HGB Conc 33.1 g/dL (31.0-36.0); Mean Platelet Volume 10.5 fL (8.8-12.5); Monocytes # (Auto) 0.88 K/mcL (0.10-0.90); Monocytes % (Auto) 7.7 % (1.0-12.0); Neutrophils % (Auto) 64.9 % (38.0-78.0); Platelet Count 210 K/mcL (140-440); RBC 3.77 M/mcL (3.59-5.38); Red Cell Distribution Width 12.7 % (11.5-14.5); WBC 11.4 K/mcL (4.5-11.0)
[2023-12-07 20:07] LABS: Alcohol, Blood < 10.1 mg/dL; Alcohol,Blood < 0.010 gm/dL (<0.010)
[2023-12-07 20:21] LABS: Partial Thromboplastin Time 35.9 sec (20.0-37.0)
[2023-12-07 20:25] LABS: ALT/SGPT 7 U/L (<40); AST/SGOT 29 U/L (<32); Albumin 4.2 gm/dL (3.2-5.2); Albumin/Globulin Ratio 1.3 (1.0-2.3); Alkaline Phosphatase 113 U/L (39-117); Bilirubin,Total 0.5 mg/dL (0.1-1.0); Blood Urea Nitrogen 39 mg/dL (8-23); Calcium 9.1 mg/dL (8.6-10.4); Carbon Dioxide 18 mmol/L (22-30); Chloride 101 mmol/L (96-108); Globulin 3.2 gm/dL (2.2-3.7); Glomerular Filtration Rate 48; Glucose 121 mg/dL (70-105); Potassium 3.8 mmol/L (3.3-5.1); Sodium 133 mmol/L (133-145)
[2023-12-07 20:26] LABS: INR 1.1 (0.9-1.1); Prothrombin Time 14.8 sec (11.9-14.5)
[2023-12-07] MEDS: 0.9 % SODIUM CHLORIDE 1,000 ML IV SCH (22:11)
[2023-12-08 00:17] LABS: Appearance,Urine Cloudy (Clear); Bacteria,Urine Many /hpf (0); Bilirubin,Urine Negative (Negative); Color,Urine Yellow; Culture Indicated,Urine Yes; Glucose,Urine (UA) Negative (Negative); Ketones,Urine Negative (Negative); Leukocyte Esterase,Urine Trace /uL (Negative); Mucus,Urine Few /hpf; Nitrate,Urine Negative (Negative); PH,Urine 5.5 (5.0-9.0); Protein,Urine Trace mg/dL (Negative); Urine Blood Trace-intact ery/mcL (Negative); Urine Hyaline Cast 6 /lph (0-2); Urine RBC 0 /hpf (0-3); Urine Squamous Epithelial Cell 4 /hpf (0-4); Urine WBC 22 /hpf (0-4); Urobilinogen,Urine Normal
[2023-12-08] MEDS: cefTRIAXone 2 GM in DEXTROSE 5% IN WATER 50 ML IV ONE (01:01)
[2023-12-08] MEDS ORDERED: ONDANSETRON 4 MG/2 ML VIAL IV PRN ×2 (02:09→08:14)
[2023-12-08] MEDS: ACETAMINOPHEN 325 MG TABLET PO PRN (03:14)
[2023-12-08] MEDS: 0.9 % SODIUM CHLORIDE 1,000 ML IV SCH (03:14)
[2023-12-08] MEDS ORDERED: SENNOSIDES 1 TABLET PO PRN (08:14)
[2023-12-08] MEDS ORDERED: POTASSIUM CHLORIDE 20 MEQ TABLET PO PRN ×2 (08:14)
[2023-12-08] MEDS ORDERED: IPRATROPIUM/ALBUTEROL 3 ML AMPUL.NEB NEB PRN (08:14)
[2023-12-08] MEDS ORDERED: POLYETHYLENE GLYCOL 3350 17 GM PACKET PO PRN (08:14)
[2023-12-08] MEDS ORDERED: MAGNESIUM SULFATE 2 GM/50 ML BAG IV PRN (08:14)
[2023-12-08] MEDS ORDERED: POTASSIUM CHLORIDE 40 MEQ in DEXTROSE 5% IN WATER 500 ML IV PRN (08:14)
[2023-12-08] MEDS: LEVOTHYROXINE 88 MCG TABLET PO SCH (08:33)
[2023-12-08] MEDS: OMEPRAZOLE 20 MG CAPSULE PO SCH (08:34)
[2023-12-08] MEDS: ASPIRIN 81 MG TAB.CHEW PO SCH (08:34)
[2023-12-08] MEDS: FLUoxetine HCL 20 MG CAPSULE PO SCH (08:34)
[2023-12-08] MEDS: DOCUSATE SODIUM 100 MG CAPSULE PO SCH (08:35)
[2023-12-08] MEDS: ENOXAPARIN 40 MG/0.4 ML SYRINGE SQ SCH (08:35)
[2023-12-08] MEDS: ALLOPURINOL 100 MG TABLET PO SCH (08:53)
[2023-12-08] MEDS: OXYBUTYNIN CHLORIDE 5 MG TAB.XL.24H PO SCH (09:52)
[2023-12-08] MEDS: LIDOCAINE 4% TOP PATCH TOPICAL SCH (10:30)
[2023-12-08] MEDS: 0.9 % SODIUM CHLORIDE 10 ML SYRINGE IV SCH (13:22)
[2023-12-08] MEDS: cefTRIAXone 1 GM VIAL IV SCH (16:25)
[2023-12-08] MEDS: VERAPAMIL 180 MG TAB.XL.24H PO SCH (20:54)
[2023-12-09 06:21] LABS: Basophils # (Auto) 0.03 K/mcL (0.00-0.30); Basophils % (Auto) 0.5 % (0.0-2.0); Eosinophils # (Auto) 0.21 K/mcL (0.00-0.70); Eosinophils % (Auto) 3.4 % (0.0-7.0); Hematocrit 33.5 % (34.1-44.9); Hemoglobin 10.5 g/dL (11.2-15.7); Lymphocytes # (Auto) 2.21 K/mcL (1.50-4.80); Lymphocytes % (Auto) 35.9 % (15.5-49.0); Mean Cell Volume 99.7 fL (80.0-100.0); Mean Corpuscular HGB Conc 31.3 g/dL (31.0-36.0); Mean Platelet Volume 10.9 fL (8.8-12.5); Monocytes # (Auto) 0.52 K/mcL (0.10-0.90); Monocytes % (Auto) 8.5 % (1.0-12.0); Neutrophils % (Auto) 51.5 % (38.0-78.0); Platelet Count 164 K/mcL (140-440); RBC 3.36 M/mcL (3.59-5.38); Red Cell Distribution Width 12.7 % (11.5-14.5); WBC 6.2 K/mcL (4.5-11.0)
[2023-12-09 06:43] LABS: ALT/SGPT < 5 U/L (<40); AST/SGOT 20 U/L (<32); Albumin 3.4 gm/dL (3.2-5.2); Albumin/Globulin Ratio 1.3 (1.0-2.3); Alkaline Phosphatase 87 U/L (39-117); Bilirubin,Direct < 0.2 mg/dL (0-0.3); Bilirubin,Total < 0.2 mg/dL (0.1-1.0); Blood Urea Nitrogen 25 mg/dL (8-23); Calcium 8.5 mg/dL (8.6-10.4); Carbon Dioxide 20 mmol/L (22-30); Chloride 112 mmol/L (96-108); Globulin 2.6 gm/dL (2.2-3.7); Glomerular Filtration Rate 68; Glucose 95 mg/dL (70-105); Lactate Dehydrogenase 187 U/L (135-225); Potassium 4.2 mmol/L (3.3-5.1); Sodium 142 mmol/L (133-145); Triglycerides 57 mg/dL (<150); Uric Acid 5.5 mg/dL (2.5-8.0)
[2023-12-11] MEDS: AMOXICILLIN/POTASSIUM CLAV 875 MG TABLET PO SCH (17:28)
[2023-12-11] MEDS: CYCLOBENZAPRINE 10 MG TABLET PO ONE (18:25)
[2023-12-11] MEDS: MELATONIN 3 MG TABLET PO SCH (20:04)
[2023-12-12 06:28] LABS: Basophils # (Auto) 0.05 K/mcL (0.00-0.30); Basophils % (Auto) 0.9 % (0.0-2.0); Eosinophils % (Auto) 3.6 % (0.0-7.0); Hematocrit 34.1 % (34.1-44.9); Hemoglobin 10.8 g/dL (11.2-15.7); Lymphocytes # (Auto) 2.46 K/mcL (1.50-4.80); Lymphocytes % (Auto) 43.9 % (15.5-49.0); Mean Cell Volume 99.1 fL (80.0-100.0); Mean Corpuscular HGB Conc 31.7 g/dL (31.0-36.0); Mean Platelet Volume 10.4 fL (8.8-12.5); Monocytes # (Auto) 0.39 K/mcL (0.10-0.90); Neutrophils % (Auto) 44.2 % (38.0-78.0); Platelet Count 200 K/mcL (140-440); RBC 3.44 M/mcL (3.59-5.38); Red Cell Distribution Width 12.7 % (11.5-14.5); WBC 5.6 K/mcL (4.5-11.0)
[2023-12-12 06:48] LABS: Blood Urea Nitrogen 20 mg/dL (8-23); Calcium 9.2 mg/dL (8.6-10.4); Carbon Dioxide 25 mmol/L (22-30); Chloride 105 mmol/L (96-108); Glomerular Filtration Rate 68; Glucose 82 mg/dL (70-105); Potassium 4.8 mmol/L (3.3-5.1); Sodium 141 mmol/L (133-145)
== END 2023-12-12 11:45 | disposition home or self-care (01) | DRG 689 ==
LOC: ED 17:48 → MEDSUR 12-08 03:00
PROVIDERS: ADMIT Internal Medicine; ATTEND Student in an Organized Health Care Education/Training Program